=== PATIENT | male | born 1940 | race Hispanic/Latino ===

== ENCOUNTER 2017-07-01 11:50 | Inpatient (IN) | payer MEDICARE ==
[2017-07-01] VITALS (17 sets, daily range): BP systolic 95–131; BP diastolic 50–85
[~2017-07-01] VITALS: Ht 160 cm; Wt 76.2 kg
[2017-07-01] MEDS ORDERED: HEPARIN SOD (PORCINE) 5,000 UNIT/ML VIAL ONE (12:41)
[2017-07-01] MEDS ORDERED: ASPIRIN 81 MG CHEW TAB ONE (12:41)
[2017-07-01] MEDS ORDERED: HEPARIN SOD (PORCINE) 1000 UNIT/ML SDV IV ONE (12:45)
[2017-07-01] MEDS ORDERED: SODIUM CHLORIDE FLUSH 10 ML SYR INJ PRN (12:45)
[2017-07-01] MEDS ORDERED: ASPIRIN 325 MG TAB PO ONE (12:45)
[2017-07-01 12:48] LABS: BASOPHILS # (AUTO) 0.1 (0.0-0.1); BASOPHILS % 0.4 % (0.0-1.0); EOSINOPHILS % 0.2 % (0.0-6.0); HEMATOCRIT 45.9 % (38.2-49.6); HEMOGLOBIN 15.3 g/dL (14.0-18.0); LYMPHOCYTES # (AUTO) 1.8 (1.0-3.2); LYMPHOCYTES % 14.7 % (18.0-39.1); MEAN CORPUSCULAR HEMOGLOBIN 30.8 pg (28-32); MEAN CORPUSCULAR HGB CONC 33.3 g/dL (31-35); MEAN CORPUSCULAR VOLUME 92.4 fL (81-99); MONOCYTES # (AUTO) 0.9 (0.2-0.8); MONOCYTES % 6.9 % (4.4-11.3); NEUTROPHILS # (AUTO) 9.7 (2.1-6.9); NEUTROPHILS % 77.3 % (38.7-80.0); PLATELET COUNT 221 x10e3/uL (140-360); RED BLOOD COUNT 4.97 x10e6/uL (4.3-5.7); RED CELL DISTRIBUTION WIDTH 14.6 % (11.7-14.4)
[2017-07-01 12:56] LABS: INR 0.99; PROTHROMBIN TIME 13.6 seconds (11.9-14.5)
[2017-07-01 12:57] LABS: PARTIAL THROMBOPLASTIN TIME 34.4 seconds (23.8-35.5)
--- NOTE | 2017-07-01 13:00 | Diagnostic Imaging Report ---
Portable chest x-ray CPT code 47827 INDICATION: Pain COMPARISON: None FINDINGS: Frontal view of the chest obtained at 1030 hours. The cardiac silhouette is enlarged. Median sternotomy wires are intact. The pulmonary vasculature is prominent centrally. The lungs demonstrate diffuse hyperinflation. There is haziness in the right lung base suggestive of atelectasis or infiltrate. The pulmonary interstitium is mildly prominent. No large effusions. There is no pneumothorax. The osseous structures are intact and normal in morphology. IMPRESSION: 1. Cardiomegaly. Prominence of the central pulmonary vasculature could be the result of pulmonary venous hypertension. 2. Mild prominence of the pulmonary interstitium suggestive of edema. 3. Right basilar airspace opacity is suggestive of atelectasis or infiltrate. Consider PA and lateral chest x-ray for further characterization when clinically feasible. Signed by: Dr. Mei Reyes MD on 07/01/2017 12:56 PM
[2017-07-01 13:03] LABS: ALANINE AMINOTRANSFERASE 18 IU/L (0-55); ALBUMIN/GLOBULIN RATIO 0.7 (0.8-2.0); ALKALINE PHOSPHATASE 51 IU/L (40-150); ANION GAP 15.9 mmol/L (8-16); BLOOD UREA NITROGEN 15 mg/dL (7-26); BUN/CREATININE RATIO 15 (6-25); CALCIUM 8.7 mg/dL (8.4-10.2); CARBON DIOXIDE 24 mmol/L (22-29); CHLORIDE 103 mmol/L (98-107); CREATININE, SERUM 1.03 mg/dL (0.72-1.25); EST GLOMERULAR FILTRATION RATE > 60 ML/MIN (60-); GLUCOSE 118 mg/dL (74-118); POTASSIUM 3.9 mmol/L (3.5-5.1); SODIUM 139 mmol/L (136-145)
[2017-07-01 13:08] LABS: TROPONIN I 5.48 ng/mL (0.0-0.40)
[2017-07-01] MEDS ORDERED: HEPARIN SOD (PORCINE) 1000 UNIT/ML 30ML ONE (13:09)
[2017-07-01] MEDS ORDERED: MIDAZOLAM HCL 2 MG/2 ML VIAL ONE (13:10)
[2017-07-01] MEDS ORDERED: FENTANYL CITRATE/PF 100MCG/2 ML INJ ONE (13:10)
[2017-07-01] MEDS ORDERED: HEPARIN SOD/SOD CHLORIDE 0 ML ONE (13:10)
[2017-07-01] MEDS ORDERED: IOPAMIDOL 370 MG/ML 200 ML INFUS..BTL INJ ONE (13:10)
[2017-07-01 13:16] LABS: CREATINE KINASE 280 IU/L (30-200)
[2017-07-01] MEDS ORDERED: LISINOPRIL2.5 MG PO (15:28)
[2017-07-01] MEDS ORDERED: NITROGLYCERIN0.4 MG SL (15:28)
[2017-07-01] MEDS ORDERED: METOPROLOL TART25 MG PO (15:28)
[2017-07-01] MEDS ORDERED: FLOMAX0.4 MG PO (15:28)
[2017-07-01] MEDS ORDERED: HYDROCODONE/APAP 5MG-325MG TAB PO PRN (19:00)
[2017-07-01] MEDS ORDERED: NITROGLYCERIN 0.4 MG SUBL SL PRN (19:00)
[2017-07-01] MEDS ORDERED: ONDANSETRON HCL INJ 2 MG/ML VIAL IV PRN (19:00)
[2017-07-01] MEDS ORDERED: MORPHINE SULFATE 2 MG/ML SYR IV PRN (19:00)
[2017-07-01] MEDS: HEPARIN 25,000 UNIT/D5W 250ML 250 ML IV SCH (19:14)
[2017-07-01] MEDS ORDERED: HEPARIN SOD (PORCINE) 5,000 UNIT/ML VIAL IV ONE (19:15)
[2017-07-01] MEDS ORDERED: FUROSEMIDE 40 MG TAB PO ONE (19:30)
[2017-07-01] MEDS: TAMSULOSIN HCL 0.4 MG CAP PO SCH (21:26)
[2017-07-01] MEDS: CLOPIDOGREL BISULFATE 75 MG TAB PO SCH (21:26)
[2017-07-01] MEDS: ATORVASTATIN 20 MG TAB PO SCH (21:26)
[2017-07-01 21:41] LABS: CREATINE KINASE MB 46.3 ng/mL (0.00-5.00)
[2017-07-01 21:51] LABS: TROPONIN I 17.268 ng/mL (0-0.300)
[2017-07-02] VITALS (39 sets, daily range): BP systolic 78–116; BP diastolic 40–76
--- NOTE | 2017-07-02 03:38 | History and Physical ---
CHIEF COMPLAINT: Chest pain. HPI: This is a 76-year-old male with a history of CABG back in 2000 and stent placements back in 1997. Has underlying coronary artery disease, former smoker, hyperlipidemia, and hypertension. Denies any diabetes. Reports to the ED with complaints of chest pain on and off for the last 2 months. Patient reports that his chest pain progressively got worse about 2 weeks ago. Described more substernal in nature with radiation to the left shoulder and arm with associated nausea. He reports having chest pain on exertion. He denies any palpitations, abdominal pain or any other complaints at this time. Patient reported to the ED and found to have a troponin greater than 5, and was initially was called as a STEMI. After review with the EKG by the narcotics investigator, at this time he did not feel like there was need for any left heart cath immediately. Patient was started on heparin drip, Plavix and aspirin, and medical management at this time. REVIEW OF SYSTEMS: Pertinent positives are substernal chest pain, chest pain on exertion. Pertinent negatives: Denies any palpitations, nausea, dysuria, hematuria, frequency, urgency, lightheadedness, dizziness, abdominal pain, headache, shortness of breath, or any other complaints. The rest of the 14-point review of systems have been reviewed with the patient and are negative. ALLERGIES: NO KNOWN DRUG ALLERGIES. HOME MEDICATIONS 1. Lisinopril 5 mg daily. 2. Metoprolol 12.5 mg daily. 3. Nitroglycerin 0.4 mg sublingual as needed for chest pain. 4. He also has tamsulosin 0.4 mg daily. PAST MEDICAL HISTORY: Hypertension, BPH, coronary artery disease, status post CABG back in 2000, 4-vessel disease, and also cardiac stents placed back in 1997. SURGICAL HISTORY: He had a 4-vessel CABG back in 2000. Also, cardiac stents back in 1997. No other surgeries. FAMILY HISTORY: Hypertension and diabetes. SOCIAL HISTORY: Was a former smoker many years ago. No drugs. No alcohol. Does not work. He is retired. PHYSICAL EXAMINATION VITAL SIGNS: Temperature is 98.5, pulse 62, respiratory rate 18, blood pressure 115/71, and pulse ox 99% on room air. GENERAL: Not in acute distress. Alert and oriented times 3. Cooperative on exam. HEENT: Head is normocephalic and atraumatic. Eyes: Pupils equal, round and reactive to light bilaterally. Extraocular movements intact bilaterally. NECK: Supple. Good range of motion. Throat with no evidence of any erythema in the posterior pharynx. Has poor dentition. PULMONARY: Clear to auscultation bilaterally. No wheezing. No rales. No rhonchi. No crackles appreciated. CARDIOVASCULAR: Positive S1 and S2. No murmurs, rubs or gallops appreciated. ABDOMEN: Soft, nondistended and nontender to palpation. Bowel sounds present. MUSCULOSKELETAL: Strength is 5/5 throughout. No evidence of any musculoskeletal deficits on examination. No weakness appreciated. NEUROLOGICAL: Cranial nerves II-XII are grossly intact. No evidence of any neurologic deficits on exam. SKIN: Intact. Warm to touch. Good cap refill. PSYCHIATRIC: Normal affect and mood. EXTREMITIES: No edema. Good range of motion throughout. LAB FINDINGS: Show a white count of 12.4, hemoglobin 15.3, hematocrit 46, and platelets of 221,000. Coagulations are all normal. Chemistry: Sodium 139, potassium 3.9, chloride 103, bicarb 24, anion gap of 15, BUN 15, creatinine 1, glucose 118. Calcium 8.7. Total bilirubin is 1.5, AST 48, ALT 18, alk phos 51. CK is 280, CK-MB 29 and troponin 5.5. Total protein is 7.3, albumin is 3. IMAGING STUDIES: Chest x-ray showed some prominence of some pulmonary interstitial edema. ASSESSMENT AND PLAN 1. Kkg-NN-gvhmqzn elevation myocardial infarction with elevated troponin: Troponin was greater than 5. Elevated CK-MB. Electrocardiogram shows likely inferior wall myocardial infarction. Cardiology was consulted. Recommended heparin drip, Plavix, aspirin, statin. Trend troponins. RAFA inhibitor and beta blockade, which were all started. Will follow cardiology recommendations. Keep in the intensive care unit for close monitoring and evaluation. 2. Hypertension: Currently, blood pressure is stable. Continue with metoprolol and RAFA inhibitor. 3. Hyperlipidemia: Get lipid panel, A1c, TSH, and start on Lipitor. 4. Chronic smoker: Patient had a former history of smoking. Currently, not smoking. 5. Prophylaxis: Heparin drip. 6. Fluid, electrolytes and nutrients: No intravenous fluids. N.p.o. after midnight. Heart-healthy diet. 7. Disposition: Intensive care unit. Cardiology consulted. I spent more than 40 minutes of critical care time on this case reviewing the chart, discussing overall plan of care with the family. Patient is currently in the ICU. Discussed overall plan of care with nursing staff as well. Job#: [id number] HOSEA
--- NOTE | 2017-07-02 03:55 | History and Physical ---
No Dictation 00:07 seconds. Job#: [id number]
--- NOTE | 2017-07-02 04:32 | Consultation ---
DATE OF CONSULTATION: CARDIOLOGY CONSULTATION I am senior safety management consultant for interventional cardiology at [facility]. I was asked to evaluate this patient. The patient was seen, EKG evaluated. Patient came here with chest pain on and off for 1 to 2 weeks and patient did not have a chest pain except he had a mild chest pain this morning, but remote pains for last 1 to 2 weeks. At this time of my examination, patient does not complain of any chest pain, blood pressure about 130/80, and no evidence of congestive heart failure. Patient's EKG shows sinus rhythm, possible old anterior wall WI, resolving ST elevation that is seen only in L3 but not in any other leads. ST elevation also secondary, it is more or less becoming ST-T changes. So, it is not an ST-elevation WI, resolving non-Q wave myocardial infarction, probably happened within last 24 hours. His enzymes are also 5.2 at this time. As the patient has no chest pain and patient does not show any acute ST-elevation WI, at this time, there is no need to do emergency heart catheterization. At this time, we will keep him in the ICU, put him on anticoagulant heparin, Plavix, aspirin, beta anish and observe him. Patient probably had an WI maybe within last 12 to 24 hours and it is resolving non-Q myocardial infarction. Also, patient will be followed by his cardiology group, Dr. Delgado and associates. I believe he follows them very closely and he also belongs to [employer] insurance, but I saw this patient because I was senior safety management consultant to evaluate the possible ST-elevation WI and take him to the cardiac worm farm laborer. As the patient is stable, no chest pain, hemodynamically normal, at this time patient is kept in ICU and observed and treated appropriately. IMPRESSIONS 1. Non-Q wave myocardial infarction. 2. History of hypertension. 3. History of aortocoronary bypass surgery x4 in 2001. In 1989, he had a coronary stent placement, but the patient has been evaluated by cardiology group, Dr. Delgado and associates. Anyhow, I will follow this patient until they take over this patient. This is emergency consultation, patient seen in the emergency room. Job#: [id number] [facility] INSTITUTEChandu
[2017-07-02] MEDS ORDERED: ASPIRIN325 MG PO (07:01)
[2017-07-02] MEDS ORDERED: DIPHENHYDRAMINE25 MG PO (07:03)
[2017-07-02 07:09] LABS: CHOL/HDL RATIO 4.4 (3.9-4.7)
[2017-07-02 07:12] LABS: ALANINE AMINOTRANSFERASE 21 IU/L (0-55); ALBUMIN 2.6 g/dL (3.5-5.0); ALBUMIN/GLOBULIN RATIO 0.7 (0.8-2.0); ALKALINE PHOSPHATASE 45 IU/L (40-150); ANION GAP 11.6 mmol/L (8-16); BLOOD UREA NITROGEN 16 mg/dL (7-26); BUN/CREATININE RATIO 16 (6-25); CALCIUM 8.3 mg/dL (8.4-10.2); CARBON DIOXIDE 27 mmol/L (22-29); CHLORIDE 102 mmol/L (98-107); CREATININE, SERUM 0.97 mg/dL (0.72-1.25); EST GLOMERULAR FILTRATION RATE > 60 ML/MIN (60-); GLUCOSE 120 mg/dL (74-118); POTASSIUM 3.6 mmol/L (3.5-5.1); SODIUM 137 mmol/L (136-145)
[2017-07-02 07:26] LABS: INR 1.06; PROTHROMBIN TIME 14.3 seconds (11.9-14.5)
[2017-07-02 07:34] LABS: CREATINE KINASE MB 32.6 ng/mL (0.00-5.00)
[2017-07-02] MEDS: LISINOPRIL 2.5 MG TAB PO SCH (09:00)
[2017-07-02] MEDS: CLOPIDOGREL BISULFATE 75 MG TAB PO SCH (09:00)
[2017-07-02] MEDS ORDERED: NITROGLYCERIN 0.4 MG SUBL SL PRN (09:00)
[2017-07-02] MEDS: ASPIRIN 81 MG CHEW TAB PO SCH (09:00)
[2017-07-02] MEDS: METOPROLOL TARTRATE 25 MG TAB PO SCH (09:00)
[2017-07-02 09:48] LABS: TROPONIN I 35.944 ng/mL (0-0.300)
[2017-07-02] MEDS: TAMSULOSIN HCL 0.4 MG CAP PO SCH (20:48)
[2017-07-02] MEDS: ATORVASTATIN 20 MG TAB PO SCH (20:48)
[2017-07-02] MEDS: ZOLPIDEM TARTRATE 5 MG TAB PO PRN (20:49)
[2017-07-02] MEDS: HEPARIN 25,000 UNIT/D5W 250ML 250 ML IV SCH (21:18)
[2017-07-03] VITALS (49 sets, daily range): BP systolic 71–130; BP diastolic 28–81
[2017-07-03 06:29] LABS: BASOPHILS % 0.4 % (0.0-1.0); EOSINOPHILS # (AUTO) 0.2 (0.0-0.4); EOSINOPHILS % 1.5 % (0.0-6.0); HEMATOCRIT 37.2 % (38.2-49.6); HEMOGLOBIN 12.6 g/dL (14.0-18.0); LYMPHOCYTES # (AUTO) 1.9 (1.0-3.2); LYMPHOCYTES % 17.6 % (18.0-39.1); MEAN CORPUSCULAR HEMOGLOBIN 31.3 pg (28-32); MEAN CORPUSCULAR HGB CONC 33.9 g/dL (31-35); MEAN CORPUSCULAR VOLUME 92.5 fL (81-99); MONOCYTES % 9.3 % (4.4-11.3); NEUTROPHILS # (AUTO) 7.4 (2.1-6.9); NEUTROPHILS % 70.1 % (38.7-80.0); PLATELET COUNT 187 x10e3/uL (140-360); RED BLOOD COUNT 4.02 x10e6/uL (4.3-5.7)
[2017-07-03 07:15] LABS: ANION GAP 9.5 mmol/L (8-16); BLOOD UREA NITROGEN 17 mg/dL (7-26); BUN/CREATININE RATIO 19 (6-25); CALCIUM 8.2 mg/dL (8.4-10.2); CARBON DIOXIDE 28 mmol/L (22-29); CHLORIDE 100 mmol/L (98-107); CREATININE, SERUM 0.88 mg/dL (0.72-1.25); EST GLOMERULAR FILTRATION RATE > 60 ML/MIN (60-); GLUCOSE 103 mg/dL (74-118); MAGNESIUM 1.9 MG/DL (1.3-2.1); POTASSIUM 3.5 mmol/L (3.5-5.1); SODIUM 134 mmol/L (136-145)
[2017-07-03 07:21] LABS: INR 1.04; PROTHROMBIN TIME 14.1 seconds (11.9-14.5)
[2017-07-03] MEDS: CLOPIDOGREL BISULFATE 75 MG TAB PO SCH (08:21)
[2017-07-03] MEDS: LISINOPRIL 2.5 MG TAB PO SCH (08:21)
[2017-07-03] MEDS: ASPIRIN 81 MG CHEW TAB PO SCH (08:21)
[2017-07-03] MEDS: METOPROLOL TARTRATE 25 MG TAB PO SCH (08:21)
[2017-07-03] MEDS: TAMSULOSIN HCL 0.4 MG CAP PO SCH (22:03)
[2017-07-03] MEDS: ATORVASTATIN 20 MG TAB PO SCH (22:03)
[2017-07-04] VITALS (47 sets, daily range): BP systolic 80–129; BP diastolic 41–85
[2017-07-04] MEDS: HEPARIN 25,000 UNIT/D5W 250ML 250 ML IV SCH ×2 (02:59→18:45)
[2017-07-04 06:12] LABS: BASOPHILS # (AUTO) 0.1 (0.0-0.1); BASOPHILS % 0.5 % (0.0-1.0); EOSINOPHILS # (AUTO) 0.3 (0.0-0.4); HEMATOCRIT 39.3 % (38.2-49.6); HEMOGLOBIN 13.3 g/dL (14.0-18.0); LYMPHOCYTES # (AUTO) 2.4 (1.0-3.2); LYMPHOCYTES % 23.5 % (18.0-39.1); MEAN CORPUSCULAR HEMOGLOBIN 31.4 pg (28-32); MEAN CORPUSCULAR HGB CONC 33.8 g/dL (31-35); MEAN CORPUSCULAR VOLUME 92.9 fL (81-99); MONOCYTES % 9.5 % (4.4-11.3); NEUTROPHILS # (AUTO) 6.3 (2.1-6.9); PLATELET COUNT 198 x10e3/uL (140-360); RED BLOOD COUNT 4.23 x10e6/uL (4.3-5.7); RED CELL DISTRIBUTION WIDTH 13.8 % (11.7-14.4)
[2017-07-04 07:12] LABS: ANION GAP 14.4 mmol/L (8-16); BLOOD UREA NITROGEN 16 mg/dL (7-26); BUN/CREATININE RATIO 16 (6-25); CALCIUM 8.5 mg/dL (8.4-10.2); CARBON DIOXIDE 26 mmol/L (22-29); CHLORIDE 99 mmol/L (98-107); CREATININE, SERUM 1.03 mg/dL (0.72-1.25); EST GLOMERULAR FILTRATION RATE > 60 ML/MIN (60-); GLUCOSE 106 mg/dL (74-118); POTASSIUM 3.4 mmol/L (3.5-5.1); SODIUM 136 mmol/L (136-145)
[2017-07-04] MEDS: ASPIRIN 81 MG CHEW TAB PO SCH (08:12)
[2017-07-04] MEDS: LISINOPRIL 2.5 MG TAB PO SCH (08:13)
[2017-07-04] MEDS: PANTOPRAZOLE SOD 40 MG TABEC PO SCH (08:13)
[2017-07-04] MEDS: METOPROLOL TARTRATE 25 MG TAB PO SCH (08:13)
[2017-07-04] MEDS: CLOPIDOGREL BISULFATE 75 MG TAB PO SCH (08:13)
[2017-07-04] MEDS ORDERED: POTASSIUM CHLORIDE 20 MEQ TAB CR PO ONE (08:55)
--- NOTE | 2017-07-04 11:13 | Progress Note ---
DATE: July 04, 2017 TIME: 6:48 a.m. OVERNIGHT: No events. He remains on heparin drip. REVIEW OF SYSTEMS: Denies any chest pain. PHYSICAL EXAMINATION VITAL SIGNS: Reviewed. Blood pressure as low as 82/42 overnight. GENERAL: A tired-appearing man resting in bed. HEENT: Anicteric. CARDIOVASCULAR: Normal S1 and S2. LUNGS: Moderate breath sounds. ABDOMEN: Soft, nontender and nondistended. EXTREMITIES: No edema. SKIN: Dry. PSYCHIATRIC: Normal affect. LABS: Reviewed. MEDICATIONS: Reviewed. ASSESSMENT: This is a 76-year-old man with: 1. Iwv-GG-nkeyqkx elevation myocardial infarction: Plan for heart catheterization. Continue heparin drip and other medication regimen. 2. Cardiogenic shock. 3. Hyperlipidemia. 4. History of cigarette abuse. 5. Normocytic anemia. 6. BPH. 7. Severe systolic congestive heart failure: Left ventricular ejection fraction less than 20%. PLAN 1. Continue heparin drip as well as statin, aspirin, Plavix, beta anish. 2. Continue statin medications. 3. Monitor blood pressure while on low-dose beta anish in the setting of low blood pressure. 4. Automatic implanted cardioverter defibrillator versus Life Vest. 5. Add Protonix for DVT prophylaxis. 6. Critical care time more than 35 minutes. Job#: [id number] HOSEA
[2017-07-04] MEDS: TAMSULOSIN HCL 0.4 MG CAP PO SCH (21:35)
[2017-07-04] MEDS: ATORVASTATIN 20 MG TAB PO SCH (21:35)
[2017-07-04] MEDS: ZOLPIDEM TARTRATE 5 MG TAB PO PRN (21:36)
[2017-07-05] VITALS (42 sets, daily range): BP systolic 91–138; BP diastolic 52–76
[2017-07-05] MEDS ORDERED: ACETAMINOPHEN 1000 MG/100 ML IV PRN (06:00)
[2017-07-05 06:01] LABS: BASOPHILS % 0.4 % (0.0-1.0); EOSINOPHILS # (AUTO) 0.3 (0.0-0.4); EOSINOPHILS % 3.3 % (0.0-6.0); HEMATOCRIT 40.9 % (38.2-49.6); HEMOGLOBIN 13.9 g/dL (14.0-18.0); LYMPHOCYTES # (AUTO) 1.2 (1.0-3.2); LYMPHOCYTES % 12.9 % (18.0-39.1); MEAN CORPUSCULAR HEMOGLOBIN 31.1 pg (28-32); MEAN CORPUSCULAR VOLUME 91.5 fL (81-99); MONOCYTES # (AUTO) 0.8 (0.2-0.8); MONOCYTES % 8.7 % (4.4-11.3); NEUTROPHILS # (AUTO) 6.8 (2.1-6.9); NEUTROPHILS % 74.4 % (38.7-80.0); PLATELET COUNT 207 x10e3/uL (140-360); RED BLOOD COUNT 4.47 x10e6/uL (4.3-5.7); RED CELL DISTRIBUTION WIDTH 13.6 % (11.7-14.4)
[2017-07-05 06:12] LABS: INR 0.99; PROTHROMBIN TIME 13.6 seconds (11.9-14.5)
[2017-07-05 06:13] LABS: PARTIAL THROMBOPLASTIN TIME 35.7 seconds (23.8-35.5)
[2017-07-05 06:27] LABS: ALANINE AMINOTRANSFERASE 17 IU/L (0-55); ALBUMIN 2.7 g/dL (3.5-5.0); ALBUMIN/GLOBULIN RATIO 0.6 (0.8-2.0); ALKALINE PHOSPHATASE 47 IU/L (40-150); ANION GAP 13.9 mmol/L (8-16); BLOOD UREA NITROGEN 15 mg/dL (7-26); BUN/CREATININE RATIO 16 (6-25); CALCIUM 8.6 mg/dL (8.4-10.2); CARBON DIOXIDE 24 mmol/L (22-29); CHLORIDE 102 mmol/L (98-107); CREATININE, SERUM 0.91 mg/dL (0.72-1.25); EST GLOMERULAR FILTRATION RATE > 60 ML/MIN (60-); GLUCOSE 104 mg/dL (74-118); MAGNESIUM 1.9 MG/DL (1.3-2.1); POTASSIUM 3.9 mmol/L (3.5-5.1); SODIUM 136 mmol/L (136-145)
[2017-07-05] MEDS ORDERED: LIDOCAINE HCL 2% LOCAL 20 ML VIAL ONE (06:30)
[2017-07-05] MEDS ORDERED: HEPARIN SOD (PORCINE) 1000 UNIT/ML 30ML ONE (06:30)
[2017-07-05] MEDS ORDERED: IOPAMIDOL 300MG/ML 50ML INFUS..BTL IV ONE (06:31)
[2017-07-05] MEDS ORDERED: IOPAMIDOL 370 MG/ML 200 ML INFUS..BTL INJ ONE (06:31)
[2017-07-05] MEDS ORDERED: HEPARIN SOD/SOD CHLORIDE 2,000 ML ONE (06:31)
[2017-07-05] MEDS ORDERED: SODIUM CHLORIDE 0.9% 1000ML 1,000 ML ONE (06:31)
--- NOTE | 2017-07-05 06:58 | Diagnostic Imaging Report ---
EXAMINATION: CHEST SINGLE (PORTABLE) INDICATION: Cough, fever COMPARISON: 07/01/2017 FINDINGS: TUBES and LINES: None. LUNGS: Lungs are not well inflated. Confluent right lower lobe and right mid lung opacities compatible with developing infection PLEURA: No pleural effusion or pneumothorax. HEART AND MEDIASTINUM: Cardiac size is mildly enlarged. Midline sternotomy wires are intact. BONES AND SOFT TISSUES: No acute osseous lesion. Soft tissues are unremarkable. UPPER ABDOMEN: No free air under the diaphragm. IMPRESSION: Right lung airspace disease with air bronchograms suspicious for pneumonia. Follow-up until resolution. Signed by: Dr. Abhishek Newton M.D. on 07/05/2017 6:55 AM
[2017-07-05] MEDS ORDERED: NITROGLYCERIN/D5W 200 MCG/ML 250 ML ONE (07:06)
[2017-07-05] MEDS ORDERED: FENTANYL CITRATE/PF 100MCG/2 ML INJ ONE (07:11)
[2017-07-05] MEDS ORDERED: MIDAZOLAM HCL 2 MG/2 ML VIAL ONE (07:12)
--- NOTE | 2017-07-05 08:37 | Operative Report ---
DATE OF PROCEDURE: July 05, 2017 PROCEDURES 1. Left heart catheterization. 2. Selective coronary angiogram. 3. Left ventriculogram. 4. Aortogram. 5. Graft injection. INDICATIONS: Myocardial infarction. DESCRIPTION OF PROCEDURE: After informed consent, the patient was brought to the cardiac catheterization laboratory and placed on the table. Both groins were painted and draped in a sterile fashion. Lidocaine injected in the right groin for local anesthesia. Right femoral artery was accessed by Seldinger technique, and a 5-St Lucian sheath was placed in the right femoral artery. Left main artery was cannulated using a JL4 5-St Lucian catheter. Coronary angiogram was performed and images obtained in multiple views. Right coronary artery was cannulated using a 3DRC 5-St Lucian catheter. Coronary angiogram was performed and images obtained multiple views. The saphenous vein graft to the left circumflex was cannulated using a 3DRC catheter. Coronary angiogram was performed and images obtained multiple views. The BRAY to the LAD was cannulated using a BRAY catheter. Coronary angiogram was performed and imagines obtained in multiple views. LV-gram was performed using a pigtail catheter. The pigtail catheter was pulled back into the aorta, and aortogram was performed to look for additional grafts. Patient tolerated the procedure without any complications. REPORT LEFT MAIN: Narrow caliber and diffusely diseased. LEFT ANTERIOR DESCENDING: Totally occluded in its proximal portion proximal to the previously placed stent. LEFT CIRCUMFLEX: Totally occluded in its proximal portion. RIGHT CORONARY ARTERY: Diffusely diseased throughout its course with a 30% mid-lesion followed by a 99% mid-lesion and a 60% to 70% mid-lesion. The saphenous vein graft to the left circumflex is patent with about 30% mid-lesion. The BRAY to the LAD was patent. It was tortuous. LV-GRAM: Shows severe hypokinesis of the inferior basal wall and hypokinesis of the other gunter. Overall, EF is about 15% to 20%. Aortogram shows no significant aortic insufficiency. No additional grafts were identified. HEMODYNAMICS: Aortic pressure is 106/60. LV pressure 119/11. LVEDP is 25. No intervention of the right coronary artery was done due with the diffuse nature of the disease, low EF and high risk PCI. PLAN: Life Vest and possible ICD down the road if the patient agrees. Job#: [id number] RI
[2017-07-05] MEDS: CLOPIDOGREL BISULFATE 75 MG TAB PO SCH ×2 (09:00→10:46)
[2017-07-05] MEDS: ASPIRIN 81 MG CHEW TAB PO SCH ×2 (09:00→10:46)
[2017-07-05] MEDS: PANTOPRAZOLE SOD 40 MG TABEC PO SCH (09:00)
[2017-07-05] MEDS: LISINOPRIL 2.5 MG TAB PO SCH (09:00)
[2017-07-05] MEDS: METOPROLOL TARTRATE 25 MG TAB PO SCH ×2 (10:29→17:00)
[2017-07-05] MEDS: LEVOFLOXACIN 500MG/D5W 100ML 100 ML IV SCH (15:00)
[2017-07-05] MEDS ORDERED: SODIUM CHLORIDE 0.9% 250ML 250 ML ONE (16:42)
[2017-07-05] MEDS ORDERED: METOPROLOL TARTRATE 25 MG TAB PO SCH (17:00)
[2017-07-05] MEDS ORDERED: METOPROLOL SUCCINATE 25 MG TAB XL PO SCH (17:00)
[2017-07-05] MEDS: HEPARIN 25,000 UNIT/D5W 250ML 250 ML IV SCH (18:33)
[2017-07-05] MEDS: ACETAMINOPHEN 325 MG TAB PO PRN (19:12)
[2017-07-05] MEDS: ATORVASTATIN 20 MG TAB PO SCH (21:20)
[2017-07-05] MEDS: TAMSULOSIN HCL 0.4 MG CAP PO SCH (21:20)
[2017-07-06] VITALS (21 sets, daily range): BP systolic 102–133; BP diastolic 56–82
--- NOTE | 2017-07-06 07:13 | Progress Note ---
DATE: July 06, 2017 TIME: 6:20 a.m. OVERNIGHT: The patient had left heart catheterization. REVIEW OF SYSTEMS: Denies any chest pain. PHYSICAL EXAMINATION VITAL SIGNS: Reviewed. GENERAL: A tired-appearing man resting in bed. HEENT: Anicteric. CARDIOVASCULAR: Normal S1 and S2. LUNGS: Moderate breath sounds. ABDOMEN: Soft, nontender and nondistended. : He has a right groin dressing in place. Soft site. No tenderness. EXTREMITIES: No edema. SKIN: Dry. PSYCHIATRIC: Normal affect. LABS: Reviewed. MEDICATIONS: Reviewed. ASSESSMENT: A 76-year-old man with: 1. Gbu-XC-rsdujma elevation myocardial infarction. 2. Cardiogenic shock. 3. Severe systolic congestive heart failure: Ejection fraction less than 20%. 4. Hyperlipidemia. 5. Cigarette abuse. 6. Normocytic anemia. 7. BPH. PLAN 1. Life Vest explained to him. 2. Heart catheterization revealed left main diffusely diseased. Left anterior descending artery totally occluded in the proximal region. Left circumflex totally occluded in the proximal region. The right coronary artery has significant disease and 99% mid-lesion. No intervention was performed due to low ejection fraction in a high risk patient. Will follow up with cardiology recommendations. 3. Continue Lipitor, Plavix, aspirin, RAFA inhibitor, beta anish. 4. Continue Protonix and GI prophylaxis. 5. Critical care time more than 35 minutes. Job#: [id number] [place]
--- NOTE | 2017-07-06 07:17 | Progress Note ---
DATE: July 05, 2017 TIME: 6:30 a.m. OVERNIGHT: No events. REVIEW OF SYSTEMS: Denies any chest pain. PHYSICAL EXAMINATION VITAL SIGNS: Reviewed. GENERAL: A tired-appearing man resting in bed. HEENT: Anicteric. CARDIOVASCULAR: Normal S1/S2. No murmurs. ABDOMEN: Soft, nontender. EXTREMITIES: No edema. SKIN: Dry. PSYCHIATRIC: Normal affect. LABS: Reviewed. MEDICATIONS: Reviewed. ASSESSMENT: A 76-year-old man with 1. Non-ST elevation myocardial infarction. 2. Cardiogenic shock. 3. Hyperlipidemia. 4. Cigarette abuse. 5. Normocytic anemia. 6. BPH. 7. Severe systolic congestive heart failure: Ejection fraction less than 20%. PLAN 1. Follow up left heart catheterization. 2. Continue medication regimen and medical management. 3. Continue GI prophylaxis . Job#: [id number] CQ
[2017-07-06] MEDS ORDERED: BENZONATATE 100 MG CAP PO PRN (09:00)
[2017-07-06] MEDS: ASPIRIN 81 MG CHEW TAB PO SCH (10:04)
[2017-07-06] MEDS: METOPROLOL TARTRATE 25 MG TAB PO SCH ×2 (10:06→17:00)
[2017-07-06] MEDS: PANTOPRAZOLE SOD 40 MG TABEC PO SCH (10:06)
[2017-07-06] MEDS: LISINOPRIL 2.5 MG TAB PO SCH (10:06)
[2017-07-06] MEDS: CLOPIDOGREL BISULFATE 75 MG TAB PO SCH (10:06)
[2017-07-06] MEDS: LEVOFLOXACIN 500MG/D5W 100ML 100 ML IV SCH (15:00)
[2017-07-06] MEDS: HEPARIN 25,000 UNIT/D5W 250ML 250 ML IV SCH (18:45)
[2017-07-06] MEDS: ACETAMINOPHEN 325 MG TAB PO PRN (20:51)
[2017-07-06] MEDS: ATORVASTATIN 20 MG TAB PO SCH (20:51)
[2017-07-06] MEDS: TAMSULOSIN HCL 0.4 MG CAP PO SCH (20:51)
[2017-07-07] VITALS (7 sets, daily range): BP systolic 99–118; BP diastolic 52–64
--- NOTE | 2017-07-07 07:21 | Progress Note ---
DATE: July 07, 2017 TIME: 6:30 a.m. OVERNIGHT: No chest pain. Some coughing. REVIEW OF SYSTEMS: Denies any dizziness. PHYSICAL EXAMINATION VITAL SIGNS: Reviewed. GENERAL: A tired-appearing man resting in bed. HEENT: Anicteric. CARDIOVASCULAR: Normal S1 and S2. LUNGS: He has mildly coarse breath sounds. ABDOMEN: Soft, nontender and nondistended. EXTREMITIES: No edema or calf tenderness. NEUROLOGICAL: Alert and appropriate. Moving all extremities. SKIN: Dry. PSYCHIATRIC: Flat affect. LABS: Reviewed. MEDICATIONS: Reviewed. ASSESSMENT: A 76-year-old man with: 1. Lrq-OX-uviypdf elevation myocardial infarction. 2. Cardiogenic shock. 3. Severe systolic congestive heart failure with ejection fraction of less than 20%. 4. Hyperlipidemia. 5. Cigarette abuse. 6. Normocytic anemia. 7. BPH. 8. Multivessel coronary artery disease without any intervention and left heart catheterization. PLAN 1. Continue medical management. 2. Lipase pending. 3. Continue Lipitor, Plavix, aspirin, RAFA inhibitor, and beta anish. 4. On antitussive medications, Tessalon, guaifenesin DM. 5. Awaiting discharge once lipase is obtained. Patient can be discharged home. He will probably benefit from cardiac rehab. Consult case management for cardiac rehab upon discharge. He needs close followup with cardiology outpatient. Job#: [id number] HOSEA
[2017-07-07] MEDS ORDERED: BENZONATATE 100 MG CAP PO PRN (09:00)
[2017-07-07] MEDS: ASPIRIN 81 MG CHEW TAB PO SCH (09:05)
[2017-07-07] MEDS: CLOPIDOGREL BISULFATE 75 MG TAB PO SCH (09:05)
[2017-07-07] MEDS: LISINOPRIL 2.5 MG TAB PO SCH (09:05)
[2017-07-07] MEDS: PANTOPRAZOLE SOD 40 MG TABEC PO SCH (09:05)
[2017-07-07] MEDS: METOPROLOL TARTRATE 25 MG TAB PO SCH ×2 (09:05→16:34)
[2017-07-07] MEDS: BENZONATATE 100 MG CAP PO SCH ×3 (09:07→21:00)
[2017-07-07] MEDS: GUAIFENESIN 600MG/DEXTROMETHORPHAN 30MG TABSR PO SCH ×2 (16:00→21:00)
[2017-07-07] MEDS: LEVOFLOXACIN 500MG/D5W 100ML 100 ML IV SCH (16:34)
[2017-07-07] MEDS: TAMSULOSIN HCL 0.4 MG CAP PO SCH (21:00)
[2017-07-07] MEDS: ATORVASTATIN 20 MG TAB PO SCH (21:00)
[2017-07-08] VITALS: BP 104/59
[2017-07-08 04:00] VITALS: BP 112/55
[2017-07-08] MEDS: BENZONATATE 100 MG CAP PO SCH (06:04)
[2017-07-08] MEDS: GUAIFENESIN 600MG/DEXTROMETHORPHAN 30MG TABSR PO SCH (06:04)
[2017-07-08 07:49] VITALS: BP 112/58
[2017-07-08 09:50] VITALS: BP 112/58
[2017-07-08] MEDS: PANTOPRAZOLE SOD 40 MG TABEC PO SCH (09:50)
[2017-07-08] MEDS: CLOPIDOGREL BISULFATE 75 MG TAB PO SCH (09:50)
[2017-07-08] MEDS: METOPROLOL TARTRATE 25 MG TAB PO SCH (09:50)
[2017-07-08] MEDS: LISINOPRIL 2.5 MG TAB PO SCH (09:50)
[2017-07-08] MEDS: ASPIRIN 81 MG CHEW TAB PO SCH (09:50)
[2017-07-08 12:00] VITALS: BP 142/61
[2017-07-08] MEDS ORDERED: LIPITOR20 MG PO (13:00)
[2017-07-08] MEDS ORDERED: NITROSTAT0.4 MG SL (13:00)
[2017-07-08] MEDS ORDERED: PLAVIX75 MG PO (13:00)
[2017-07-08] MEDS ORDERED: PROTONIX40 MG/ML PO (13:00)
[2017-07-08] MEDS ORDERED: ASPIRIN CHEW81 MG PO (13:00)
--- NOTE | 2017-07-08 19:43 | Discharge Summary ---
PRINCIPAL DIAGNOSES 1. Non-ST elevation myocardial infarction. 2. Cardiogenic shock, status post LifeVest placement. 3. Hyperlipidemia. 4. Cigarette abuse. 5. Normocytic anemia. 6. Benign prostatic hypertrophy. 7. Severe systolic congestive heart failure with ejection fraction less than 20%, status post LifeVest placement. SECONDARY DIAGNOSIS: Hypertension. CHIEF COMPLAINT: Chest pain. HISTORY OF PRESENT ILLNESS: This 76-year-old man was admitted with chest pain. For further details, please refer to history and physical. HOSPITAL COURSE: The patient was found to have non-ST elevation AK. Also, found to have severe systolic congestive heart failure with left ventricular ejection fraction less than 20%. Heart catheterization showed diffuse disease. He needs medical management. The patient is doing well. He received LifeVest today and will be transitioned home with that device. He will need continued medical management and follow up with his primary care physician. DISCHARGE MEDICATIONS: Lipitor, Plavix, aspirin, RAFA inhibitor, beta anish. FOLLOWUP INSTRUCTIONS: Follow up with primary care physician in one week and river expedition guide in 2 weeks. CONDITION ON DISCHARGE: Stable and improving. DISPOSITION: Home. ANGELA BERNAL MD Job#: [id number]
== END 2017-07-08 14:14 | disposition home or self-care (01) | DRG 280 ==
LOC: ER 11:50 → ERHOLD 13:02 → UNDOADMIN 13:02 → CATH LAB 13:23 → ERHOLD 17:33 → ICU 17:35 → MED/SURG 07-06 21:40
PROVIDERS: ADMIT Internal Medicine; ATTEND Internal Medicine
PROC: 4A023N7 Measurement of Cardiac Sampling and Pressure, Left Heart, Percutaneous Approach (ICD-10-PCS; principal; 2017-07-05)
PROC: B2111ZZ Fluoroscopy of Multiple Coronary Arteries using Low Osmolar Contrast (ICD-10-PCS; 2017-07-05)
PROC: B2121ZZ Fluoroscopy of Single Coronary Artery Bypass Graft using Low Osmolar Contrast (ICD-10-PCS; 2017-07-05)
PROC: B2181ZZ Fluoroscopy of Left Internal Mammary Bypass Graft using Low Osmolar Contrast (ICD-10-PCS; 2017-07-05)
DX: I21.4 Non-ST elevation (NSTEMI) myocardial infarction (principal); R57.0 Cardiogenic shock; I50.20 Unspecified systolic (congestive) heart failure; I25.10 Atherosclerotic heart disease of native coronary artery without angina pectoris; I25.82 Chronic total occlusion of coronary artery; E78.5 Hyperlipidemia, unspecified; D64.9 Anemia, unspecified; N40.0 Benign prostatic hyperplasia without lower urinary tract symptoms; I25.5 Ischemic cardiomyopathy; Z87.891 Personal history of nicotine dependence; Z79.82 Long term (current) use of aspirin; Z79.02 Long term (current) use of antithrombotics/antiplatelets
CPT/HCPCS: 36140; 36200; 36415; 71010; 75756; 77002; 80048; 80053; 80061; 82550; 82553; 83036; 83735; 83880; 84443; 84484; 85025; 85610; 85730; 87070; 87205; 87400; 93005; 93306; 93452; 93459; 99285; J1644; J1956; J2001; J2250; J7030; J7050; Q9967

== ENCOUNTER 2017-11-22 08:14 | Inpatient (IN) | payer MEDICARE ==
[~2017-11-22] VITALS: Ht 160 cm; Wt 79.4 kg
[~2017-11-22 08:14] MED LIST: ASPIRIN CHEW81 MG PO; ASPIRIN325 MG PO; DIPHENHYDRAMINE25 MG PO; FLOMAX0.4 MG PO; LIPITOR20 MG PO; LISINOPRIL2.5 MG PO; METOPROLOL TART25 MG PO; NITROGLYCERIN0.4 MG SL; NITROSTAT0.4 MG SL; PLAVIX75 MG PO; PROTONIX40 MG/ML PO
--- OUTSIDE RECORDS SUMMARY | 2017-11-22 08:17 | XMS REPORT ---
Author [facility] Address Unknown Phone Unavailable Care Team Providers Care Bakery Chef Name Role Phone ANGELA BERNAL Unavailable Unavailable Problems This patient has no known problems. Allergies, Adverse Reactions, Alerts This patient has no known allergies or adverse reactions. Medications This patient has no known medications. Results Test Description Test Time Test Comments Text Results Atomic Results Result Comments CHEST SINGLE (PORTABLE) [place] [address] Patient Name: SALLIE FLYNN MR #: [id number] : 1940 Age/Sex: 76/M Req #: [id number] Adm Physician: ANGELA BERNAL MD Ordered by: ANGELA BERNAL MD Report #: [id number] Location: ICU Room/Bed: ICU [facility] ___ Procedure: [id number] DX/CHEST SINGLE (PORTABLE) Exam Date: 07/05/17 Exam Time: 0615 REPORT STATUS: Signed EXAMINATION: CHEST SINGLE (PORTABLE) INDICATION: Cough, fever COMPARISON: 07/01/2017 FINDINGS: TUBES and LINES: None. LUNGS: Lungs are not well inflated. Confluent right lower lobe and right mid lung opacities compatible with developing infection PLEURA: No pleural effusion or pneumothorax. HEART AND MEDIASTINUM: Cardiac size is mildly enlarged. Midline sternotomy wires are intact. BONES AND SOFT TISSUES: No acute osseous lesion. Soft tissues are unremarkable. UPPER ABDOMEN: No free air under the diaphragm. IMPRESSION: Right lung airspace disease with air bronchograms suspicious for pneumonia. Follow-up until resolution. Signed by: Dr. Abhishek Newton M.D. on 07/05/2017 6:55 AM Dictated By: ABHISHEK LEVY MD 4 Transcribed By: GRADY on 07/05/17654 COPY TO: ANGELA BERNAL MD CHEST SINGLE (PORTABLE) [place] [address] Patient Name: SALLIE FLYNN MR #: [id number] : 1940 Age/Sex: 76/M Req #: [id number] Adm Physician: Ordered by: DIONISIO BRITT MD Report #: [id number] Location: ER Room/Bed: Procedure: [id number] DX/CHEST SINGLE (PORTABLE) Exam Date: 07/01/17 Exam Time: 1245 REPORT STATUS: Signed Portable chest x -ray CPT code 82106 INDICATION: Pain COMPARISON: None FINDINGS: Frontal view of the chest obtained at 1030 hours. The cardiac silhouette is enlarged. Median sternotomy wires are intact. The pulmonary vasculature is prominent centrally. The lungs demonstrate diffuse hyperinflation. There is haziness in the right lung base suggestive of atelectasis or infiltrate. The pulmonary interstitium is mildly prominent. No large effusions. There is no pneumothorax. The osseous structures are intact and normal in morphology. IMPRESSION: 1. Cardiomegaly. Prominence of the central pulmonary vasculature could be the result of pulmonary venous hypertension. 2. Mild prominence of the pulmonary interstitium suggestive of edema. 3. Right basilar airspace opacity is suggestive of atelectasis or infiltrate. Consider PA and lateral chest x-ray for further characterization when clinically feasible. Signed by: Dr. Mei Reyes MD on 07/01/2017 12:56 PM Dictated By: MEI REYES MD 1252 Transcribed By: GRADY on 07/01/17 1256 COPY TO: DIONISIO BRITT MD
[2017-11-22] MEDS ORDERED: ASPIRIN 81 MG CHEW TAB PO ONE ×2 (08:30→11:15)
[2017-11-22 08:49] LABS: BASOPHILS % 0.5 % (0.0-1.0); EOSINOPHILS # (AUTO) 0.1 (0.0-0.4); HEMATOCRIT 41.2 % (38.2-49.6); LYMPHOCYTES # (AUTO) 1.4 (1.0-3.2); LYMPHOCYTES % 16.4 % (18.0-39.1); MEAN CORPUSCULAR HEMOGLOBIN 32.6 pg (28-32); MEAN CORPUSCULAR VOLUME 95.8 fL (81-99); MONOCYTES # (AUTO) 0.5 (0.2-0.8); MONOCYTES % 6.1 % (4.4-11.3); NEUTROPHILS # (AUTO) 6.5 (2.1-6.9); NEUTROPHILS % 75.3 % (38.7-80.0); PLATELET COUNT 180 x10e3/uL (140-360); RED CELL DISTRIBUTION WIDTH 14.4 % (11.7-14.4)
[2017-11-22 08:53] LABS: INR 1.1; PROTHROMBIN TIME 13.4 seconds (11.9-14.5)
[2017-11-22 08:54] LABS: PARTIAL THROMBOPLASTIN TIME 29.2 seconds (23.8-35.5)
[2017-11-22 09:03] LABS: ALBUMIN 3.5 g/dL (3.5-5.0); ALBUMIN/GLOBULIN RATIO 1.1 (0.8-2.0); CALCIUM 8.8 mg/dL (8.4-10.2); CREATININE, SERUM 1.23 mg/dL (0.72-1.25)
[2017-11-22 09:09] LABS: CREATINE KINASE MB 1.3 ng/mL (0-5.0)
--- NOTE | 2017-11-22 09:59 | Diagnostic Imaging Report ---
Examination: CT head without contrast Clinical Indication: Headache. Unsteady gait. Technique: Transaxial noncontrast images from the skull base through the vertex were obtained. Sagittal and coronal reformatted images were done. Comparison: None. Findings: Scalp: No abnormalities. Bones: Intact. No fractures. No blastic or lytic lesions. Brain sulci: Appropriate for patient's age. Ventricles: Normal in size and configuration. No hydrocephalus. . Extra-axial space: No abnormalities. Parenchyma: There are patchy areas of low-attenuation within subcortical and periventricular white matter, nonspecific, but could represent microvascular ischemic disease. No masses, hemorrhage, or acute or chronic cortical based vascular insults. Suprasellar region: No abnormalities. Craniocervical junction: The foramen magnum is patent. No Chiari one malformation. Incidental findings: Atherosclerotic calcification of the cavernous and supraclinoid internal carotid arteries. Impression: 1. No acute intracranial abnormality. 2. Mild chronic microvascular ischemic change. Signed by: Dr. Jeannie Montague M.D. on 11/22/2017 9:55 AM
[2017-11-22 11:14] LABS: CLARITY,URINE CLEAR (CLEAR); COLOR,URINE AMBER (YELLOW)
[2017-11-22 11:16] LABS: BILIRUBIN,URINE NEGATIVE (NEGATIVE); KETONES,URINE NEGATIVE (NEGATIVE); LEUKOCYTE ESTERASE ,URINE NEGATIVE (NEGATIVE); NITRITE,URINE NEGATIVE (NEGATIVE); PROTEIN,URINE DIPSTICK NEGATIVE (NEGATIVE); URINE UROBILINOGEN 0.2 mg/dL (0.2 - 1)
[2017-11-22] MEDS: SODIUM CHLORIDE 0.9% 1000ML 1,000 ML IV SCH (11:48)
[2017-11-22 11:52] LABS: BACTERIA,URINE RARE /HPF; EPITHELIAL CELLS,URINE RARE /LPF
[2017-11-22] MEDS ORDERED: ENOXAPARIN SOD INJ 40 MG/0.4 ML SYR SC SCH (17:00)
[2017-11-22 17:05] LABS: CREATINE KINASE MB 4.8 ng/mL (0-5.0)
[2017-11-22 17:07] LABS: CHOL/HDL RATIO 3.2 (3.9-4.7)
--- NOTE | 2017-11-22 17:40 | Consultation ---
DATE OF CONSULTATION: November 22, 2017 NEUROLOGY CONSULT HISTORY OF PRESENT ILLNESS: Mr. Campos is a 77-year-old right hand dominant man with past medical history significant for hypertension, hyperlipidemia, and coronary artery disease, who presented to the emergency center at [facility] on November 22, 2017, with multiple symptoms. Mr. Campos awoke on the morning of admission with an unusual sensation in his head. When he sat up in his bed, he felt like there was "liquid moving through his head." Other symptoms endorsed by the patient include numbness over one side of the head/face (right V1 distribution), blurred vision, and possible dizziness. Mr. Campos endorses pain at the vertex of the skull. He cannot describe the quality of the pain but reports it is constant. He does not report photophobia or phonophobia. He does report nausea without vomiting. As stated above, the patient has possibly experienced some dizziness as well. Mr. Campos does not endorse dysarthria, aphasia, facial droop, or numbness. He reports generalized weakness. Mr. Campos has not ambulated today due to concerns he may fall. Mr. Campos was brought to the emergency center at [facility] by family members for further evaluation and treatment. Upon admission to the emergency center, the patient was afebrile with a blood pressure of 145/91 mmHg and a pulse of 84 beats per minute. The neurological examination performed by the emergency center physician was reportedly nonfocal. A CT of the brain without contrast was performed but did not show evidence of recent large territorial ischemia, hemorrhage, mass, or mass effect. Mr. Campos will be admitted to [facility] for further evaluation and treatment of his symptoms. REVIEW OF SYSTEMS: Nausea, blurred vision, numbness over the right side of the head and face, generalized weakness, headache, possible dizziness. PAST MEDICAL HISTORY: Hypertension, hyperlipidemia, coronary artery disease with prior heart attack, GERD, and benign prostatic hypertrophy. PAST SURGICAL HISTORY: Cardiac stent placement, 4-vessel CABG. PAST HOSPITALIZATIONS: Surgeries and procedures as listed, multiple hospitalizations for heart disease. FAMILY HISTORY: The patient's paternal and maternal grandparents are . Their medical histories are unknown. Mr. Campos's father is . His medical history is unknown. Mr. Campos's mother is . She had diabetes mellitus. Mr. Campos has 8 siblings, but 3 have . One brother from lung disease. The cause of for the other 2 siblings is not known. The remaining 5 siblings who are still living are reportedly healthy. Mr. Campos has 2 sons and 7 daughters, all of whom are alive and healthy. SOCIAL HISTORY: The patient is . He completed school through either the third or fourth grade in [place]. 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 The patient does not report current or prior tobacco or recreational drug use. He drinks 1 shot of liquor (tequila) per day. HOME MEDICATIONS: Aspirin 81 mg by mouth daily, Plavix 75 mg by mouth daily, lisinopril 5 mg by mouth daily, Lasix 40 mg by mouth daily, isosorbide mononitrate ER 60 mg by mouth daily, metoprolol 25 mg by mouth twice daily, atorvastatin 40 mg by mouth daily, pantoprazole 40 mg by mouth daily, potassium chloride 20 mEq by mouth daily, tamsulosin 0.4 mg by mouth daily, Ranexa 500 mg by mouth twice daily, nitroglycerin 0.4 mg sublingually as needed for chest pain, Advil by mouth as needed for pain. ALLERGIES: NO KNOWN DRUG ALLERGIES. NO KNOWN FOOD ALLERGIES. NO KNOWN ALLERGIES TO LATEX. NO KNOWN ALLERGIES TO IODINE OR OTHER CONTRAST MATERIALS. PHYSICAL EXAMINATION: VITAL SIGNS: Height 63 inches, weight 168 pounds, BMI 29.8 kg per meter squared, blood pressure 133/80 mmHg, pulse 78 beats per minute, respiratory rate 18 breaths per minute, oxygen saturation 100% on room air. GENERAL: The patient is awake and alert, does not appear distressed. Overweight. HEENT: Normocephalic, atraumatic. Pupils are surgical. Moist mucous membranes. NECK: Supple. No appreciable thyromegaly. No appreciable carotid bruits. CARDIOVASCULAR: S1, S2, regular rate and rhythm. No murmurs, rubs, or gallops. RESPIRATORY: Clear to auscultation bilaterally. No wheezes, rhonchi, or rales. EXTREMITIES: The skin is warm and dry. No clubbing, cyanosis, or edema. The posterior tibial and dorsalis pedis pulses are 1+ and symmetric. SKIN: No rashes or lesions. NEUROLOGIC Memory/Attention: The patient is awake and alert, oriented to person, place, time, and situation. Cranial Nerves: Cranial nerve 1--Not tested. Cranial nerve 2, 3, 4, and 6--Pupils are surgical, extraocular movements intact, no nystagmus. Cranial nerve 5--Sensation to light touch and pinprick is intact in the bilateral V1 through V3 distributions. Strength of the temporalis and masseter muscles is within normal limits. Cranial nerve 7--Possible right facial asymmetry. Facial movements are symmetric. Strength is within normal limits. Cranial nerve 8--Hearing is intact to finger rub bilaterally. Cranial nerve 9, 10--The soft palate elevates equally and symmetrically. Cranial nerve 11--Normal strength of the bilateral sternocleidomastoid and trapezius muscles. Cranial nerve 12--The tongue protrudes midline and moves symmetrically from side to side. Strength: Bulk is normal. Strength is 5/5 in the bilateral deltoids, biceps, triceps, wrist flexors and extensors, finger flexors and extensors, intrinsic hand muscles, hip flexors, knee flexors and extensors, ankle dorsiflexion and plantar flexion, and intrinsic foot muscles. Tone is normal. DTRs: Deep tendon reflexes are 1+ and symmetric at the triceps, biceps, brachioradialis, patellas, and Achilles. Plantar responses are flexor bilaterally. Sensation: Sensation is intact to light touch and pinprick in both arms and both legs. Cerebellar: Otpjuu-vqnr-cnoypy and heel-sandoval movements are intact without dysmetria or other impairment. Gait: Deferred. Speech: Spontaneous speech is normal without appreciable dysarthria or aphasia. Repetition is intact. Involuntary Movements: None. Pronator Drift: Right arm. LABORATORY DATA: Sodium 141, potassium 4.0, chloride 107, carbon dioxide 24, anion gap 14.0, BUN 23, creatinine 1.23, estimated GFR 57. BUN to creatinine ratio 19. Glucose 115. Calcium 8.8. Total bilirubin 1.0, AST 15, ALT 11, alkaline phosphatase 52, total protein 6.7, albumin 3.5, globulin 3.2. Albumin to globulin ratio 1.1. Creatine kinase 59, CK-MB 1.30, troponin I 0.027. The CBC with differential and platelets reveals a white blood cell count of 8.65 with 75.3% neutrophils, 16.4% lymphocytes, 6.1% monocytes, 1.0% eosinophils, and 0.5% basophils. PT 13.4, INR 1.10, PTT 29.2. A urinalysis is unremarkable. Ethyl alcohol level 11.8. DIAGNOSTIC STUDIES: EKG November 22, 2017: Normal sinus rhythm at [address] of the brain without contrast November 22, 2017: On my review, there is no evidence of recent large territorial ischemia, hemorrhage, mass, or mass effect. There are changes compatible with chronic mild to moderate small-vessel ischemic disease. Cerebral volumes are normal for age. ASSESSMENT AND PLAN: Mr. Campos is a 77-year-old right hand dominant man with multiple vascular risk factors who awoke this morning with multiple symptoms as described in the history of present illness. The patient's neurological examination is significant for possible right facial asymmetry and drift in the right arm. His laboratory data and other diagnostic studies have been reviewed and are documented above. A person awakening with multiple neurological symptoms raises concerns for a transient ischemic attack/stroke. Therefore, a complete stroke evaluation is recommended. 1. The patient will be placed on telemetry while in the hospital. 2. Lipid panel and hemoglobin A1c. 3. MRI of brain without contrast. 4. Echocardiogram. 5. Bilateral carotid artery ultrasound with Doppler. 6. Continue aspirin/Plavix for the time being. 7. Allow permissive hypertension pending completion of vessel studies. 8. Follow up lipid panel. Continue home medication. 9. Follow up hemoglobin A1c. Tight glycemic control is recommended. 10. Speech and physical therapy consultations will be ordered. 11. GI prophylaxis with Pepcid 20 mg by mouth before meals twice daily. DVT prophylaxis with Lovenox 40 mg subcutaneously daily. 12. Defer treatment of the remaining medical comorbidities to the primary and other services. Thank you for this consultation. I will continue to follow this patient while he remains in the hospital. Time spent: 50 minutes. Job#: [id number] EV CELENA
[2017-11-22] MEDS ORDERED: POTASSIUM CHLO10 ME1 PO (18:57)
[2017-11-22] MEDS ORDERED: ISOSORBIDE MONO20 MG PO (18:57)
[2017-11-22] MEDS ORDERED: RANEXA500 MG PO (18:57)
[2017-11-22] MEDS ORDERED: NITROGLYCERIN 0.4 MG SUBL SL PRN (19:00)
[2017-11-22] MEDS ORDERED: ATORVASTATIN 20 MG TAB PO SCH (21:00)
[2017-11-22] MEDS: ATORVASTATIN 40 MG TAB PO SCH (21:00)
[2017-11-22 21:24] VITALS: BP 153/82
[2017-11-22 21:30] VITALS: BP 153/82
--- NOTE | 2017-11-22 21:31 | Diagnostic Imaging Report ---
History: Dizzy stroke Comparison studies: None Technique: Axial images were obtained from the skull base to the vertex. Coronal and sagittal reconstructions obtained from the axial data. Findings: Scalp/skull: No abnormalities. No fractures, blastic or lytic lesions. Extra-axial spaces: No masses. No fluid collections. Brain sulci: Appropriate for age. Ventricles: Normal in size and configuration. No hydrocephalus. Parenchyma: Diffusion restriction and FLAIR hyperintensity throughout the inferomedial right cerebellar hemisphere. Loss of flow-void in the right vertebral artery concerning for right vertebral artery thrombus. Mild supratentorial mitral vascular ischemic changes. Bilateral pontine chronic lacunar infarcts. No masses or hemorrhage. Sellar/suprasellar region: No abnormalities Craniocervical junction: Patent foramen magnum. No Chiari one malformation. IMPRESSION: 1. Acute nonhemorrhagic infarct throughout the inferomedial right cerebellum in the right PICA territory. 2. Loss of flow-void in the right vertebral artery highly concerning for acute right vertebral artery thrombus. Findings discussed with Dr. Elizondo at 6:50 PM on 11/22/2017. Signed by: DR Gustavo Gunter M.D. on 11/22/2017 9:27 PM
[2017-11-22 22:14] LABS: CREATINE KINASE MB 6.3 ng/mL (0-5.0)
[2017-11-23] VITALS (8 sets, daily range): BP systolic 123–152; BP diastolic 67–93
[2017-11-23] MEDS: SODIUM CHLORIDE 0.9% 1000ML 1,000 ML IV SCH ×4 (02:30→17:43)
[2017-11-23 06:09] LABS: CREATINE KINASE MB 7.5 ng/mL (0-5.0)
[2017-11-23] MEDS: FAMOTIDINE 20 MG TAB PO SCH ×2 (07:30→15:43)
[2017-11-23] MEDS: ISOSORBIDE MONONITRATE 20 MG TAB PO SCH (08:38)
[2017-11-23] MEDS: POTASSIUM CHLORIDE 10 MEQ TABCR PO SCH (08:46)
[2017-11-23] MEDS: LISINOPRIL 2.5 MG TAB PO SCH (08:49)
[2017-11-23] MEDS: PANTOPRAZOLE SOD 40 MG TABEC PO SCH (08:49)
[2017-11-23] MEDS: METOPROLOL TARTRATE 25 MG TAB PO SCH ×2 (08:49→15:43)
[2017-11-23] MEDS ORDERED: TAMSULOSIN HCL 0.4 MG CAP PO SCH (09:00)
[2017-11-23] MEDS ORDERED: CLOPIDOGREL BISULFATE 75 MG TAB PO SCH (09:00)
[2017-11-23] MEDS ORDERED: ASPIRIN 81 MG CHEW TAB PO SCH (09:00)
--- NOTE | 2017-11-23 11:39 | History and Physical ---
PRIMARY CARE PHYSICIAN: Dr. Toni Lewis CHIEF COMPLAINT: Headache and confusion. HISTORY OF PRESENT ILLNESS: A 77-year-old man with a history of coronary artery disease, who drinks about 1 shot of Tequila every day, now developing headache in the frontal region for 1 day rated at 6/10 with blurred vision in the right eye and confusion. The patient also has some difficulty walking. Brought to the hospital. Here he was found to have acute ischemic stroke. He is admitted for further evaluation and management. The patient does have chronic angina, which is unchanged. PAST MEDICAL HISTORY: Coronary artery disease, status post coronary artery bypass grafting in 2000, coronary artery disease, status post stents in 1997, cigarette abuse, alcohol use about 1 Tequila shot per day, hypertension, hyperlipidemia, BPH, [id number] OH in June 2017, cardiogenic shock, status post Life Vest placement, severe systolic congestive heart failure, left ventricular ejection fraction less than 20%, status post Life Vest placement in June 2017. PAST SURGICAL HISTORY: Coronary artery bypass grafting in 2000, coronary stents in 1997. ALLERGIES: PER ELECTRONIC MEDICAL RECORD. FAMILY HISTORY/SOCIAL HISTORY: Patient is retired and . He quit smoking. Drinks 1 Tequila shot per day. No illicits. MEDICATIONS: Per electronic medical records. REVIEW OF SYSTEMS: Denies any dizziness or chest pain at this time. PHYSICAL EXAMINATION VITAL SIGNS: Have been reviewed. GENERAL: A tired-appearing man resting in bed. HEENT: Anicteric. Pupils respond to light. No oral lesions. CARDIOVASCULAR: Normal S1 and S2. LUNGS: Moderate breath sounds. ABDOMEN: Soft, nontender and nondistended. EXTREMITIES: No edema or calf tenderness. NEUROLOGICAL: He is alert and oriented times 3. Moves all extremities. He has no visual field deficits. Motor strength is 5/5/ in all extremities. His confusion has resolved. SKIN: Dry. PSYCHIATRIC: Normal affect. LABS: Reviewed. MEDICATIONS: Reviewed. ASSESSMENT AND PLAN: A 77-year-old man with: 1. Acute ischemic stroke in the right cerebellar region: Will continue Plavix, aspirin, statin, blood pressure control. Will consult physical therapy. 2. Right vertebral artery occlusion: Will continue medication treatment at this time of Plavix, aspirin, blood pressure control. 3. Acute kidney injury: Rehydrate and reassess. 4. Elevated troponin: Will trend. 5. Coronary artery disease with history of stents and coronary artery bypass grafting: Will trend enzymes. 6. Metabolic encephalopathy: This is resolving. 7. Hypertension: Continue blood pressure medicines. 8. Hyperlipidemia: Continue statin medications. LDL was 86, triglycerides 46. 9. Alcohol use: He drinks 1 shot of Tequila daily. His alcohol level was elevated here. 10. Obesity: Body mass index is 31.4. His hemoglobin A1c was 5.3. Does not have diabetes. 11. Ambulatory dysfunction: Will get physical therapy on board to assess and address. 12. Prophylaxis: Will use Lovenox and proton pump inhibitor. 13. Disposition: Physical therapy. Follow up labs and monitor closely. Job#: [id number] HOSEA
--- NOTE | 2017-11-23 12:26 | Consultation ---
DATE OF CONSULTATION: November 23, 2017 REQUESTING PHYSICIAN: Dr. Deuce Vazquez REASON FOR CONSULTATION: Elevated troponin and low ejection fraction. HPI: This is a pleasant, 77-year-old male that presented with dizziness and weakness. According to the family at the bedside, he started having problem with movement. He was confused and having some falls. They brought him into the emergency room for evaluation. He had a CT done that showed an acute stroke, and he was admitted for further evaluation. He was also found to have an elevated troponin of 0.7. He denies any chest pain, any palpitations, any headache or diaphoresis. BNP was not done. He has an extensive cardiac history with open heart surgery in the past, 4 vessels. He still continues to smoke and drink and is noncompliant with medications. He had a cardiac catheterization done in July 2017. No intervention was done due to the diffuse nature of his cardiac disease. He was sent home with a LifeVest. He only had the LifeVest for only 2 months, and he stopped wearing it. He was sent by Dr. Sharpe to Dr. Olson in the [facility] for further cardiac evaluation. PAST MEDICAL HISTORY: Hypertension, hyperlipidemia, CAD, anemia, BPH, systolic CHF, CVA, cardiogenic shock. PAST SURGICAL HISTORY: Open heart surgery in 2000, cardiac stents, cardiac catheterization recently in July with no intervention. FAMILY HISTORY: Positive for CAD. SOCIAL HISTORY: He smokes and drinks daily. He lives at home with family. MEDICATIONS: See med list. ALLERGIES: HE IS NOT ALLERGIC TO ANY MEDICATION. REVIEW OF SYSTEMS: Negative, except those mentioned above. PHYSICAL EXAMINATION VITAL SIGNS: Temperature 98, heart rate 67, blood pressure 138/82, respirations 16, oxygen saturation 98% on room air. GENERAL: He is awake, alert, oriented times 3. HEENT: Mucous membranes moist. NECK: Supple. LUNGS: Bilateral clear to auscultation. CARDIOVASCULAR: S1, S2 present. ABDOMEN: Soft. EXTREMITIES: Bilateral lower extremities with no edema. NEUROLOGIC: Able to move all extremities. LABS: Sodium 141, potassium 4.0, chloride 107, CO2 24, BUN 23, creatinine 1.23. Glucose 115. White blood cells 8.65, hemoglobin 14.0, hematocrit 41.2, platelets 180. PT 13.4, PTT 29.2, INR 1.10. IMPRESSION 1. Fgj-OK-rlozmqfqh myocardial infarction. 2. Acute stroke. 3. Systolic congestive heart failure. 4. Hypertension. 5. Coronary artery disease with stent. 6. Tobacco and alcohol abuse. ASSESSMENT AND PLAN 1. He had cardiac catheterization in July with no PCI due to the diffuse nature of his CAD. 2. Will go ahead and get an echocardiogram to reassess the LV and valve function. 3. He had LifeVest worn for 60 days only. 4. Will continue permissive hypertension. 5. Will get bilateral carotid Doppler to rule out any occlusion. 6. Will consult EP for possible ICD placement. 7. Will continue medical management for now. Further cardiac workup pending clinical course. Thank you for this consultation. Dictated by Naya Newell NP. Job#: [id number]
[2017-11-23] MEDS ORDERED: HYDRALAZINE HCL 20 MG/ML VIAL IV PRN (13:45)
[2017-11-23] MEDS: ENOXAPARIN SOD INJ 40 MG/0.4 ML SYR SC SCH ×2 (14:00→21:00)
--- NOTE | 2017-11-23 14:40 | Consultation ---
DATE OF CONSULTATION: November 23, 2017 REQUESTING PHYSICIAN: Dr. Sharpe REASON FOR CONSULTATION: Evaluation of the patient for possible defibrillator. CHIEF COMPLAINT: Dizziness, weakness and shortness of breath. HISTORY OF PRESENT ILLNESS: Mr. Campos is a 77-year-old gentleman with a history of coronary artery disease with bypass surgery 17 years ago, ischemic cardiomyopathy with ejection fraction of 25% to 30%, wearing a Life Vest, right bundle branch block, diabetes mellitus, hypertension, who was admitted to the hospital with dizziness, lightheadedness and off balance feeling. The patient was noted to have an acute stroke. He is being evaluated for that. We were consulted for evaluation of possible defibrillator. The patient has been wearing a Life Vest for over 90 days. His ejection fraction is still 25% to 30% on optimal medical management with beta blockers, RAFA inhibitors and diuretics. He does have an IVCD with QRS duration of 150 milliseconds. PAST MEDICAL HISTORY: As that listed in HPI. SOCIAL HISTORY: Negative for tobacco or drug abuse currently. Positive for alcohol use regularly. FAMILY HISTORY: Positive for diabetes mellitus and heart disease. Negative for cardiomyopathy or cardiac arrhythmias. REVIEW OF SYSTEMS: General, endocrine, respiratory, GI, dermatologic, lymphatic review of systems within normal limits. PHYSICAL EXAMINATION VITALS: Blood pressure is 130/70, heart rate is currently 77, respiratory rate 22, saturation is 98% on room air. GENERAL: Mr. Campos is a middle-aged elderly appearing male who is in no acute distress. HEENT: Mucous membranes are pink and moist. Anicteric and acyanotic. CARDIOVASCULAR: S1 and S2 audible. S3 is also audible. Regular rate and rhythm is noted. No murmurs or rubs are noted. RESPIRATORY: Lungs are clear to auscultation bilaterally. No rhonchi or rales noted. GI: Abdomen is soft, nondistended and nontender. Bowel sounds are heard in all 4 quadrants. EXTREMITIES: No clubbing, cyanosis or edema. Two plus pulses in all 4 extremities. NEUROLOGIC: Currently, he is alert and oriented times 3 with no focal neurologic deficits. LABORATORY STUDIES: Reviewed. EKG shows sinus rhythm with IVCD/left bundle branch block, and QRS duration between 140-145 milliseconds. Echocardiogram again shows an ejection fraction of 25% to 30%. According to the family, the patient's picking supervisor, Dr. Jones, has attempted a heart catheterization on him, but found that he has extensive scarring. Therefore, no revascularization is possible. IMPRESSION: Mr. Campos is a 77-year-old man with ischemic cardiomyopathy with ejection fraction of 25% to 30%, IVCD/left bundle branch block, QRS duration of 145 milliseconds, on optimal medical management for many years, who is admitted to the hospital with an acute stroke. He is resolving from the stroke, and is being evaluated for anticoagulation post stroke. However, he does meet primary prevention criteria for implantable cardioverter defibrillator therapy given the fact that he has been on optimal medical management for a number of years, and he still has an ejection fraction of 25% to 30%. Furthermore, he has a QRS duration of 145 milliseconds with a left bundle branch block morphology that would probably benefit from biventricular implantable cardioverter defibrillator therapy. I have discussed the risks, benefits and alternatives with him at great length. He understands and is agreeable to the plan. However, wants to discuss with his family at this time. Will tentatively plan for his biventricular implantable cardioverter defibrillator implant tomorrow. However, will wait for his family's decision on whether they want to proceed or not. Thank you for the consultation. Job#: [id number] HOSEA
[2017-11-23 15:15] LABS: CREATINE KINASE MB 5.9 ng/mL (0-5.0)
[2017-11-23] MEDS: TAMSULOSIN HCL 0.4 MG CAP PO SCH (21:00)
[2017-11-23] MEDS: ATORVASTATIN 40 MG TAB PO SCH (21:00)
[2017-11-24] VITALS (11 sets, daily range): BP systolic 130–153; BP diastolic 60–88
[2017-11-24] MEDS: SODIUM CHLORIDE 0.9% 1000ML 1,000 ML IV SCH ×2 (03:49→11:12)
[2017-11-24 06:33] LABS: BASOPHILS # (AUTO) 0.1 (0.0-0.1); BASOPHILS % 0.6 % (0.0-1.0); EOSINOPHILS # (AUTO) 0.1 (0.0-0.4); EOSINOPHILS % 0.7 % (0.0-6.0); HEMATOCRIT 42.3 % (38.2-49.6); HEMOGLOBIN 14.2 g/dL (14.0-18.0); LYMPHOCYTES # (AUTO) 1.5 (1.0-3.2); LYMPHOCYTES % 18.8 % (18.0-39.1); MEAN CORPUSCULAR HEMOGLOBIN 33.2 pg (28-32); MEAN CORPUSCULAR HGB CONC 33.6 g/dL (31-35); MEAN CORPUSCULAR VOLUME 98.8 fL (81-99); MONOCYTES # (AUTO) 0.8 (0.2-0.8); MONOCYTES % 10.2 % (4.4-11.3); NEUTROPHILS # (AUTO) 5.6 (2.1-6.9); NEUTROPHILS % 68.8 % (38.7-80.0); PLATELET COUNT 187 x10e3/uL (140-360); RED BLOOD COUNT 4.28 x10e6/uL (4.3-5.7); RED CELL DISTRIBUTION WIDTH 14.2 % (11.7-14.4)
[2017-11-24 07:11] LABS: ALANINE AMINOTRANSFERASE 10 IU/L (0-55); ALBUMIN 3.1 g/dL (3.5-5.0); ALBUMIN/GLOBULIN RATIO 1.1 (0.8-2.0); ALKALINE PHOSPHATASE 44 IU/L (40-150); ANION GAP 16.3 mmol/L (8-16); BLOOD UREA NITROGEN 19 mg/dL (7-26); BUN/CREATININE RATIO 18 (6-25); CALCIUM 8.5 mg/dL (8.4-10.2); CARBON DIOXIDE 22 mmol/L (22-29); CHLORIDE 106 mmol/L (98-107); CREATININE, SERUM 1.08 mg/dL (0.72-1.25); EST GLOMERULAR FILTRATION RATE > 60 ML/MIN (60-); GLUCOSE 71 mg/dL (74-118); POTASSIUM 4.3 mmol/L (3.5-5.1); SODIUM 140 mmol/L (136-145)
[2017-11-24 07:14] LABS: INR 1.16; PROTHROMBIN TIME 13.9 seconds (11.9-14.5)
[2017-11-24 07:15] LABS: PARTIAL THROMBOPLASTIN TIME 32.3 seconds (23.8-35.5)
--- NOTE | 2017-11-24 07:27 | Progress Note ---
DATE: November 24, 2017 TIME: 6:58 a.m. OVERNIGHT: No events. REVIEW OF SYSTEMS: Denies any dizziness. VITAL SIGNS: Reviewed. PHYSICAL EXAMINATION GENERAL: A tired-appearing man resting in bed. HEENT: Anicteric. CARDIOVASCULAR: Normal S1 and S2. LUNGS: Moderate breath sounds. ABDOMEN: Soft, nontender and nondistended. EXTREMITIES: No edema. SKIN: Dry. PSYCHIATRIC: Normal affect. LABS: Reviewed. MEDICATIONS: Reviewed. ASSESSMENT AND PLAN: A 77-year-old man. 1. Acute ischemic stroke in the right cerebellar region. 2. Right vertebral artery occlusion. 3. Acute kidney injury. 4. Elevated troponin. 5. Coronary artery disease with history of stents and coronary artery bypass grafting. 6. Severe systolic congestive heart failure with LifeVest in the past. 7. Hypertension. 8. Hyperlipidemia. 9. Daily alcohol use. 10. Obesity. Body mass index is 31.4. 11. Ambulatory dysfunction. 12. Aau-HT-vcimnaqrv myocardial infarction. PLAN 1. AICD placement pending. Patient wants the device. 2. Patient did have a gri-FU-rxjdstoss OR. Will continue medical treatment at this time with statin, beta anish, RAFA inhibitor, nitrates. Plan to start aspirin prior to discharge. 3. The blood pressure is controlled. 4. Follow up with marketing automation specialist. Job#: [id number]
[2017-11-24] MEDS: FAMOTIDINE 20 MG TAB PO SCH ×2 (07:30→16:30)
[2017-11-24] MEDS: ISOSORBIDE MONONITRATE 20 MG TAB PO SCH (08:21)
[2017-11-24] MEDS: POTASSIUM CHLORIDE 10 MEQ TABCR PO SCH (08:22)
[2017-11-24] MEDS: PANTOPRAZOLE SOD 40 MG TABEC PO SCH (08:22)
[2017-11-24] MEDS: LISINOPRIL 2.5 MG TAB PO SCH (08:22)
[2017-11-24] MEDS: METOPROLOL TARTRATE 25 MG TAB PO SCH ×2 (08:22→17:00)
[2017-11-24] MEDS: ENOXAPARIN SOD INJ 40 MG/0.4 ML SYR SC SCH (08:23)
[2017-11-24] MEDS ORDERED: BACITRACIN 50,000 UNIT VIAL ONE ×2 (08:58→10:17)
[2017-11-24] MEDS ORDERED: LIDOCAINE HCL 2% LOCAL 20 ML VIAL ONE (08:58)
[2017-11-24] MEDS ORDERED: MIDAZOLAM HCL 2 MG/2 ML VIAL ONE (08:58)
[2017-11-24] MEDS ORDERED: SODIUM CHLORIDE 0.9% 1000ML 1,000 ML ONE ×2 (08:58→10:17)
[2017-11-24] MEDS ORDERED: FENTANYL CITRATE/PF 100MCG/2 ML INJ ONE (08:58)
[2017-11-24] MEDS ORDERED: SODIUM CHLORIDE 0.9% 500ML 1,000 ML ONE (08:58)
[2017-11-24] MEDS ORDERED: CEFAZOLIN SOD 1 GM VIAL ONE (10:03)
[2017-11-24] MEDS ORDERED: SODIUM CHLORIDE 0.9% 100 ML 0 ML ONE (10:03)
[2017-11-24] MEDS ORDERED: VANCOMYCIN 1GM/NS 250 ML 250 ML ONE (10:03)
--- NOTE | 2017-11-24 12:10 | Diagnostic Imaging Report ---
PROCEDURE: A single AP view of the chest. COMPARISON: 07/05/17 INDICATIONS: PACEMAKER PLACEMENT FINDINGS: Lines/tubes: New dual lead cardiac device in place with distal leads overlying right atrium and right ventricle. Lungs: Limited by body habitus and low lung volumes. Pulmonary vascular congestion and mild interstitial edema. Pleura: There is no visible pneumothorax. Possible trace bilateral pleural effusions. Heart and mediastinum: Enlarged cardiac silhouette. Bones: No acute bony abnormality. IMPRESSION: Pulmonary vascular congestion and mild interstitial edema. Possible trace bilateral pleural effusions. New dual lead cardiac device in place. No visible pneumothorax. Dictated by: Sam Chapman M.D. on 11/24/2017 at 12:12 Electronically approved by: Sam Chapman M.D. on 11/24/2017 at 12:12
[2017-11-24] MEDS ORDERED: MORPHINE SULFATE 2 MG/ML SYR IV PRN (13:15)
[2017-11-24] MEDS: MINOCYCLINE HCL 50 MG CAP PO SCH ×2 (14:00→19:30)
[2017-11-24] MEDS: DEXTROSE 5%/0.45% SOD CHL 1,000 ML IV SCH (14:51)
[2017-11-24] MEDS: ACETAMINOPHEN/CODEINE 300MG - 30MG TAB PO SCH ×2 (17:46→22:49)
[2017-11-24] MEDS: ATORVASTATIN 40 MG TAB PO SCH (19:30)
[2017-11-24] MEDS: TAMSULOSIN HCL 0.4 MG CAP PO SCH (19:30)
[2017-11-25] VITALS (8 sets, daily range): BP systolic 117–162; BP diastolic 56–85
[2017-11-25] MEDS ORDERED: MINOCYCLINE HCL50 MG PO (02:36)
[2017-11-25] MEDS ORDERED: TYLENOL WITH C1 EACH PO (02:36)
[2017-11-25] MEDS: ACETAMINOPHEN/CODEINE 300MG - 30MG TAB PO SCH ×4 (05:04→23:51)
--- NOTE | 2017-11-25 06:28 | Diagnostic Imaging Report ---
EXAM: CHEST SINGLE (PORTABLE), AP 1 view INDICATION: Status post a CAD placement COMPARISON: AP view the chest November 24, 2017 FINDINGS: LINES/TUBES: Stable position of left approach cardiac device. LUNGS: Stable pulmonary edema. PLEURA: Stable small bilateral pleural effusions. HEART AND MEDIASTINUM: Stable enlargement of the cardiomediastinal silhouette. BONES AND SOFT TISSUES: No acute findings. IMPRESSION: No significant interval change. Signed by: Dr. Gabby Orozco M.D. on 11/25/2017 6:25 AM
[2017-11-25] MEDS: FAMOTIDINE 20 MG TAB PO SCH ×2 (07:30→16:30)
[2017-11-25] MEDS: MINOCYCLINE HCL 50 MG CAP PO SCH ×2 (09:00→21:30)
[2017-11-25] MEDS: ISOSORBIDE MONONITRATE 20 MG TAB PO SCH (09:00)
[2017-11-25] MEDS: POTASSIUM CHLORIDE 10 MEQ TABCR PO SCH (09:00)
[2017-11-25] MEDS: METOPROLOL TARTRATE 25 MG TAB PO SCH ×2 (09:00→16:46)
[2017-11-25] MEDS: LISINOPRIL 2.5 MG TAB PO SCH (09:00)
[2017-11-25] MEDS: PANTOPRAZOLE SOD 40 MG TABEC PO SCH (09:00)
[2017-11-25] MEDS: DEXTROSE 5%/0.45% SOD CHL 1,000 ML IV SCH (14:45)
--- NOTE | 2017-11-25 20:13 | Diagnostic Imaging Report ---
EXAM: ABDOMEN-1VIEW (KUB), supine INDICATION: For NG tube placement COMPARISON: None FINDINGS: LINES/TUBES: Tip of nasogastric tube in the expected location of the body of the stomach. BOWEL PATTERN: No evidence for obstruction. SOFT TISSUES: No abnormal calcifications. LUNG BASES: Not included BONES: No acute findings. IMPRESSION: Tip of nasogastric tube in the expected location of the body of the stomach. Signed by: Dr. Gabby Orozco M.D. on 11/25/2017 8:10 PM
--- NOTE | 2017-11-25 20:28 | Progress Note ---
DATE: November 25, 2017 TIME: 1545 MEDICINE PROGRESS NOTE OVERNIGHT: No acute events. REVIEW OF SYSTEMS: Patient denies any chest pain or shortness of breath. Furthermore, patient denies nausea, vomiting, diarrhea, dizziness or claudication. PHYSICAL EXAMINATION VITAL SIGNS: T 97.8, P 71, respirations 20, BP 141/85, pulse ox 96% on 2 L nasal cannula. GENERAL APPEARANCE: This is a tired-appearing man resting supine in bed. HEAD, EYES, EARS, NOSE, THROAT: Normocephalic. Oral mucosa dry and intact. No sinus tenderness. CV: S1 and S2 auscultated without clicks, murmurs or rubs. LUNGS: Moderate breath sounds in all mahoney with good excursion. ABDOMEN: Soft, slightly tender in left upper quadrant, nondistended. EXTREMITIES: No edema. Trace PT pulses. SKIN: Dry. PSYCHIATRIC: Normal affect. LABS: Reviewed. MEDICATIONS: D5 half NS at 40 mL an hour. Patient is n.p.o. Other meds being held. Medications include 1. Q.6 p.o. Tylenol No. 3. 2. Minocycline 100 mg p.o. q.12. 3. Flomax 0.4 p.o. nightly. 4. Lipitor 40 mg p.o. nightly. 5. K-Dur 10 mEq p.o. daily. 6. Protonix 40 mg p.o. daily. 7. Lopressor 25 mg p.o. b.i.d. 8. Lisinopril 5 mg p.o. daily. 9. Isosorbide mononitrate 20 mg p.o. daily. 10. Pepcid 20 mg b.i.d. a.c. meals. 11. P.r.n. morphine. 12. P.r.n. hydralazine. 13. Sublingual p.r.n. nitroglycerin for chest pain. ASSESSMENT AND PLAN: This is a 77-year-old man with 1. Acute ischemic stroke in the right cerebellar region. Neurology consult appreciated. Patient will need statin prior to discharge. 2. Right vertebral artery occlusion. 3. Acute kidney injury. Follow up morning laboratories. Provide free water flushes in addition to intravenous. 4. Elevated troponin. Patient did have a non-ST segment elevation myocardial infarction. Continue medical treatment with statin, beta-blockers, angiotensin-converting enzyme inhibitors and nitrates. Again, patient will need aspirin prior to discharge. 5. Coronary artery disease with history of stents and coronary artery bypass graft. 6. Severe systolic congestive heart failure with LifeVest in the past. Patient is now status post automatic implantable cardioverter defibrillator times 1 day. 7. Hypertension. 8. Hyperlipidemia. 9. Daily alcohol use. 10. Obesity. Body mass index is 31.4. 11. Ambulatory dysfunction. 12. Prophylaxis. Sequential compression devices and Pepcid. 13. Disposition. After extensive discussion with patient and the family. At this time concerning failure of bedside swallow evaluation, the patient is going to be provided with a nasogastric tube to ensure medications are administered. Patient and family will review how nasogastric tube is tolerated prior to obtaining gastrointestinal consult for possible placement of gastrostomy tube if rehab prognosis was extended. Additionally, the patient will need to follow up with the mortgage counselor specialist for automatic implantable cardioverter defibrillator placement. Will follow up the basic metabolic panel in morning to ensure patient tolerates fluids and feedings without difficulty. Dictated By: Hamzah Hernandez NP Job#: [id number] CQ
[2017-11-25] MEDS: ATORVASTATIN 40 MG TAB PO SCH (21:30)
[2017-11-25] MEDS: TAMSULOSIN HCL 0.4 MG CAP PO SCH (21:30)
[2017-11-26] VITALS (8 sets, daily range): BP systolic 108–130; BP diastolic 55–72
[2017-11-26] MEDS: ACETAMINOPHEN/CODEINE 300MG - 30MG TAB PO SCH ×3 (05:13→17:38)
[2017-11-26 07:14] LABS: ANION GAP 9.3 mmol/L (8-16); BLOOD UREA NITROGEN 9 mg/dL (7-26); BUN/CREATININE RATIO 13 (6-25); CALCIUM 8.1 mg/dL (8.4-10.2); CARBON DIOXIDE 28 mmol/L (22-29); CHLORIDE 102 mmol/L (98-107); EST GLOMERULAR FILTRATION RATE > 60 ML/MIN (60-); GLUCOSE 108 mg/dL (74-118); POTASSIUM 3.3 mmol/L (3.5-5.1); SODIUM 136 mmol/L (136-145)
[2017-11-26] MEDS: PANTOPRAZOLE SOD 40 MG TABEC PO SCH (09:00)
[2017-11-26] MEDS ORDERED: POTASSIUM CHLORIDE 20MEQ/15ML UDC NG ONE (09:30)
[2017-11-26] MEDS: METOPROLOL TARTRATE 25 MG TAB PO SCH ×2 (09:57→20:50)
[2017-11-26] MEDS: LISINOPRIL 2.5 MG TAB PO SCH (09:57)
[2017-11-26] MEDS: ISOSORBIDE MONONITRATE 20 MG TAB PO SCH (09:57)
[2017-11-26] MEDS: POTASSIUM CHLORIDE 10 MEQ TABCR PO SCH (09:57)
[2017-11-26] MEDS: MINOCYCLINE HCL 50 MG CAP PO SCH ×2 (09:57→20:50)
[2017-11-26] MEDS: FAMOTIDINE 20 MG TAB PO SCH ×2 (09:57→16:30)
[2017-11-26] MEDS: DEXTROSE 5%/0.45% SOD CHL 1,000 ML IV SCH (14:45)
--- NOTE | 2017-11-26 18:57 | Progress Note ---
DATE: November 26, 2017 TIME OF SERVICE: 1300 SUBJECTIVE: Overnight no acute events. REVIEW OF SYSTEMS: The patient denies chest pain or shortness of breath. The patient denies nausea, vomiting, diarrhea, dizziness or claudication. Patient with some tenderness to left chest wall AICD site. OBJECTIVE VITAL SIGNS: Temperature 96.8, pulse 66, respirations 20, blood pressure 124/68, pulse oximetry 96%. GENERAL APPEARANCE: A tired-appearing man resting supine in the bed. HEENT: Oral mucosa is moist and intact. No palpable sinus tenderness. Normocephalic. Arcus senilis noted. CARDIOVASCULAR: S1 and S2 distant. LUNGS: Moderate breath sounds in all mahoney on excursion. ABDOMEN: Soft and slightly tender in the left upper quadrant. Not distended. EXTREMITIES: There is no edema. Trace DT and DP pulses. SKIN: Dry. PSYCHIATRIC: Normal affect. LABORATORY DATA: NA 136, K 33, Cl 102, CO2 of 28, gap 9.3, BUN 9, creatinine 0.70 and GFR 60. Calcium 8.1. Hematology counts with WBC at 8.17. Hemoglobin and hematocrit of 14.2 and 42.3 and platelets at 187,000. MEDICATIONS: 1. Pepcid 20 mg b.i.d. a.c. 2. Minocycline 100 mg q.12 h. 3. K-Dur 10 mEq p.o. daily. 4. Lisinopril 5 mg p.o. daily. 5. Isosorbide mononitrate 20 mg p.o. daily. 6. Flomax 0.4 mg nightly. 7. Lipitor 40 mg nightly. 8. Tylenol No. 3 q.6 h. 9. Protonix 40 mg p.o. daily. 10. Lopressor 25 mg q.12 h. by mouth. 11. P.r.n. morphine. 12. P.r.n. hydralazine. 13. P.r.n. nitroglycerin x3 q. 5 minutes for chest pain. ASSESSMENT AND PLAN: This is a 77-year-old man with: 1. Acute ischemic stroke in the right cerebellar region. Neurology consult continues. The patient will need statin prior to discharge. 2. Right vertebral artery occlusion. 3. Acute kidney injury. Morning laboratories stable. Will discontinue IV fluids and continue the free water flushes in addition to tube feeding boluses. 4. Elevated troponins. Patient with positive Non-STEMI. Cardiology following. Continue medical treatment with statin, beta blockers, RAFA inhibitors and nitrates. Patient needs aspirin prior to discharge. 5. Coronary artery disease with history of stent and coronary artery bypass graft. 6. Severe systolic congestive heart failure with LifeVest in the past. Patient is now day 2 status post AICD implantation. 7. Hypertension. 8. Hyperlipidemia. 9. Daily alcohol use. 10. Obesity. BMI 31.4. 11. Ambulatory dysfunction. Physical therapy is following. 12. Prophylaxis: SCDs and Pepcid. DISPOSITION: Again with extensive discussion with the patient and the family at the bedside with RN in attendance. The patient and family pleased with temporary nasogastric tube and bolus feedings at this time. The patient and family furthermore request modified barium swallow as available to assure nutrition needs are met as the patient will likely need assisted facility due to poor ambulation with physical therapy. Additionally, the patient will be followed up with instructional services specialist for the AICD placement. K replaced this day and will follow up in a.m. DICTATED BY: Michelle Hernandez NP Job#: [id number]
[2017-11-26] MEDS: ATORVASTATIN 40 MG TAB PO SCH (20:50)
[2017-11-26] MEDS: TAMSULOSIN HCL 0.4 MG CAP PO SCH (20:50)
[2017-11-27] VITALS (8 sets, daily range): BP systolic 109–140; BP diastolic 61–74
[2017-11-27] MEDS: ACETAMINOPHEN/CODEINE 300MG - 30MG TAB PO SCH ×4 (06:00→17:55)
[2017-11-27 07:06] LABS: ANION GAP 11.7 mmol/L (8-16); BLOOD UREA NITROGEN 8 mg/dL (7-26); BUN/CREATININE RATIO 11 (6-25); CALCIUM 8.2 mg/dL (8.4-10.2); CARBON DIOXIDE 31 mmol/L (22-29); CHLORIDE 102 mmol/L (98-107); CREATININE, SERUM 0.75 mg/dL (0.72-1.25); EST GLOMERULAR FILTRATION RATE > 60 ML/MIN (60-); GLUCOSE 91 mg/dL (74-118); POTASSIUM 3.7 mmol/L (3.5-5.1); SODIUM 141 mmol/L (136-145)
[2017-11-27] MEDS: FAMOTIDINE 20 MG TAB PO SCH ×2 (09:54→16:05)
[2017-11-27] MEDS: METOPROLOL TARTRATE 25 MG TAB PO SCH ×2 (09:55→21:00)
[2017-11-27] MEDS: ISOSORBIDE MONONITRATE 20 MG TAB PO SCH (09:55)
[2017-11-27] MEDS: LISINOPRIL 2.5 MG TAB PO SCH (09:55)
[2017-11-27] MEDS: MINOCYCLINE HCL 50 MG CAP PO SCH ×2 (09:55→21:19)
[2017-11-27] MEDS: PANTOPRAZOLE SOD 40 MG TABEC PO SCH (09:55)
[2017-11-27] MEDS: POTASSIUM CHLORIDE 10 MEQ TABCR PO SCH (09:55)
[2017-11-27] MEDS ORDERED: METOPROLOL TARTRATE INJ 1 MG/ML VIAL IV PRN ×2 (11:00→11:45)
[2017-11-27] MEDS ORDERED: DIGOXIN INJ 0.25 MG/ML 2 ML AMP IV ONE (11:15)
[2017-11-27] MEDS ORDERED: HYDRALAZINE HCL 20 MG/ML VIAL IV PRN (11:45)
[2017-11-27 11:59] LABS: CHOL/HDL RATIO 3.3 (3.9-4.7); MAGNESIUM 1.5 MG/DL (1.3-2.1); PHOSPHORUS 3.8 MG/DL (2.3-4.7)
[2017-11-27 12:18] LABS: THYROID STIMULATING HORMONE 2.929 uIU/mL (0.350-4.940)
[2017-11-27] MEDS: RIVAROXABAN 20 MG TABLET PO SCH (16:05)
[2017-11-27] MEDS: TAMSULOSIN HCL 0.4 MG CAP PO SCH (21:15)
[2017-11-27] MEDS: ATORVASTATIN 40 MG TAB PO SCH (21:17)
[2017-11-28] VITALS (8 sets, daily range): BP systolic 122–149; BP diastolic 60–70
[2017-11-28] MEDS: ACETAMINOPHEN/CODEINE 300MG - 30MG TAB PO SCH ×4 (05:03→17:15)
--- NOTE | 2017-11-28 06:54 | Progress Note ---
DATE: November 27, 2017 TIME: 4 p.m. OVERNIGHT: The patient having difficulty swallowing. NG tube in place. PHYSICAL EXAMINATION VITAL SIGNS: Reviewed. GENERAL: A tired-appearing woman resting in bed. HEENT: Anicteric. He has an NG tube in place. CARDIOVASCULAR: Normal S1 and S2. LUNGS: Moderate breath sounds. ABDOMEN: Soft, nontender and nondistended. EXTREMITIES: No edema. MUSCULOSKELETAL: He has a dressing across the left chest site at AICD site. NEUROLOGICAL: Alert and appropriate. LABS: Reviewed. MEDICATIONS: Reviewed. ASSESSMENT: A 77-year-old man with: 1. Acute ischemic stroke in the right cerebellar region. 2. Dysphagia: Status post nasogastric tube placement. 3. Acute right vertebral artery occlusion. 4. Acute kidney injury. 5. Elevated troponin. 6. Coronary artery disease with history of bypass. 7. Severe systolic congestive heart failure: Status post automatic implanted cardioverter defibrillator placement. 8. Hypertension. 9. Hyperlipidemia. 10. Obesity: Body mass index 31.4. 11. Ambulatory dysfunction. 12. Mkl-SM-uhlmncb elevation myocardial infarction. PLAN 1. He is status post AICD placement. 2. NG tube in place. Follow up modified barium swallow tomorrow. 3. Continue blood pressure and heart rate control. 4. Alcohol cessation counseling. Job#: [id number] HOSEA
--- NOTE | 2017-11-28 06:59 | Progress Note ---
DATE: November 28, 2017 TIME: 6:33 a.m. OVERNIGHT: No events. REVIEW OF SYSTEMS: Denies any chest pain. PHYSICAL EXAMINATION VITAL SIGNS: Reviewed. GENERAL: A tired-appearing man resting in bed. HEENT: Anicteric. CARDIOVASCULAR: Normal S1 and S2. LUNGS: Moderate breath sounds. ABDOMEN: Soft, nontender and nondistended. EXTREMITIES: He has no edema. MUSCULOSKELETAL: He has left-sided chest site AICD site with dressing in place clean and dry. SKIN: Dry. PSYCHIATRIC: Flat affect. LABS: Reviewed. MEDICATIONS: Reviewed. ASSESSMENT: This is a 77-year-old man with: 1. Acute ischemic stroke in the right cerebellar region. 2. Right vertebral artery occlusion. 3. Acute kidney injury. 4. Sxr-BM-fygcyuo elevation myocardial infarction. 5. Severe systolic congestive heart failure: Status post automatic implanted cardioverter defibrillator placement. 6. Hypertension. 7. Hyperlipidemia. 8. Daily alcohol use/alcoholism. 9. Obesity: Body mass index 31.4. 10. Ambulatory dysfunction. PLAN 1. Follow up modified barium swallow this morning. NG tube remains in place. 2. Continue medication regimen of Lipitor, beta anish, nitrate, RAFA inhibitor. 3. Continue amiodarone and beta anish. 4. Continue Xarelto. 5. Follow up modified barium swallow this morning. Job#: [id number] HOSEA
[2017-11-28] MEDS: ISOSORBIDE MONONITRATE 20 MG TAB PO SCH (09:18)
[2017-11-28] MEDS: FAMOTIDINE 20 MG TAB PO SCH ×2 (09:18→17:15)
[2017-11-28] MEDS: AMIODARONE HCL 200 MG TAB PO SCH (09:18)
[2017-11-28] MEDS: PANTOPRAZOLE SOD 40 MG TABEC PO SCH (09:19)
[2017-11-28] MEDS: LISINOPRIL 10 MG TAB PO SCH (09:19)
[2017-11-28] MEDS: POTASSIUM CHLORIDE 10 MEQ TABCR PO SCH (09:19)
[2017-11-28] MEDS: METOPROLOL TARTRATE 25 MG TAB PO SCH ×2 (09:19→21:59)
[2017-11-28] MEDS: MINOCYCLINE HCL 50 MG CAP PO SCH ×2 (09:19→21:56)
--- NOTE | 2017-11-28 14:32 | Diagnostic Imaging Report ---
PROCEDURE:X-RAY MODIFIED BARIUM SWALLOW COMPARISON:None. INDICATIONS:Dysphagia DISCUSSION:Fluoroscopic examination was performed in conjunction with speech pathology, during swallowing of a variety of thin and thick liquid consistencies. Examination shows premature spillage. The vallecula and perform sinus with thin liquids. Laryngeal penetration was noted with thin liquids. Trace aspiration was noted within liquids. Moderate to severe vallecular residue and severe piriform sinus residue was noted after the swallow CONCLUSION:Trace aspiration with thin liquids. Please see the report from speech pathology for complete details. Catracho Bautista M.D. Dictated by: Catracho Bautista M.D. on 11/28/2017 at 14:35 Electronically approved by: Catracho Bautista M.D. on 11/28/2017 at 14:35
[2017-11-28] MEDS: RIVAROXABAN 20 MG TABLET PO SCH (17:15)
--- NOTE | 2017-11-28 20:00 | Consultation ---
DATE OF CONSULTATION: November 28, 2017 GI CONSULTATION REFERRING PHYSICIAN: Dr. Deuce Vazquez REASON FOR CONSULTATION: Oropharyngeal dysphagia in a patient who is suffered from an acute stroke recently. HISTORY OF PRESENTING ILLNESS: A 37-year-old very pleasant, male. He is [place] speaking only. I derived medical history through the software product specialist. GI has been consulted for evaluation of oropharyngeal dysphagia due to recent acute ischemic stroke. He got admitted to the hospital a couple of days ago with acute stroke. He initially had right-sided weakness, which has almost resolved. He did not receive any tPA. He was treated conservatively. He also has cardiomyopathy with low ejection fraction. He received medical therapy so far. On this admission, it was determined that due to ischemic cardiomyopathy and low ejection fraction he needs primary prevention with defibrillator. He ended up with AICD on this admission. He is currently on anticoagulants. He is currently on Xarelto. The patient was eating well without any problems before getting admitted in the hospital. He had a speech and swallowing evaluation done that showed risk of aspiration during swallowing, and oropharyngeal discoordination. Speech therapist recommended n.p.o. and consider alternative routes of nutrition. On MBS he was found to have minimal risk of aspiration with clear liquid. REVIEW OF SYSTEMS: The 12-point systems reviewed and symptomatology is limited as per HPI. PAST MEDICAL HISTORY: Coronary artery disease, ischemic cardiomyopathy, ejection fraction 25% to 30%, type 2 diabetes, hypertension, hyperlipidemia. PAST SURGICAL HISTORY: Recent AICD placement. Coronary artery bypass grafting in 2000. PCI with coronary stent in 1997. FAMILY HISTORY: Retired, . Quit smoking, former smoker. Drinks one shot of tequila every night. Never used any illicit drugs. ALLERGIES: NO KNOWN DRUG ALLERGIES. HOME MEDICATIONS: Acetaminophen with codeine, atorvastatin, isosorbide mononitrate, lisinopril, metoprolol, minocycline, nitroglycerin, pantoprazole, potassium chloride, ranolazine, tamsulosin. INPATIENT MEDICATION LIST: Reviewed. He is on Xarelto. PHYSICAL EXAMINATION VITAL SIGNS: Temperature 96.2, pulse 60, respirations 18, blood pressure 124/68, oxygen saturation 96% on room air. GENERAL: No in any acute distress. HEENT: Moist mucous membranes. Anicteric sclerae. NECK: No lymphadenopathy. NG in place. CVS: S1 and S2 regular. AICD in the left upper anterior chest wall. LUNGS: Bilaterally grossly clear. ABDOMEN: Soft, nondistended, nontender, no palpable mass or hernia. Positive bowel sounds. EXTREMITIES: Warm, no leg edema. LABORATORY DATA: Last lab work available from 11/27/17 sodium 141, potassium 3.7, chloride 102, bicarb 31, BUN 8, creatinine 0.75, liver enzymes normal. WBC 8.17, hemoglobin 14.2, hematocrit 42.3, MCV 98.8, platelet count 187,000. PT 13.9, INR 1.16, PTT 32.3. Urinalysis negative. Blood alcohol level was 11.8 on 11/22/17. Modified barium swallow showed trace aspiration with thin liquids. Abdominal x-ray done on 11/25/17 showed tip of nasogastric tube in expected location of the body of the stomach. IMPRESSION: Oropharyngeal dysphagia secondary to recent stroke. As per speech and swallow evaluation, the patient has normal oral but absent pharyngeal swallow caused by severely reduced upper esophageal/cricopharyngeal opening. PLAN: Since the patient is recovering from stroke very well, the weakness on the right side has improved significantly. I recommend to continue NG tube feeding for a couple of days. Reassess his swallow evaluation by speech therapist on . If the patient continues to fail speech and swallow evaluation repeatedly, then obviously he will need PEG tube placement. Xarelto needs to be stopped at least 3 days prior to procedure. In the interim, nutrition can be maintained through the NG tube feeding. The rest of the care as per primary team. I thank Dr. Vazquez for allowing me to participate in the care of this patient. Job#: [id number]
[2017-11-28] MEDS: TAMSULOSIN HCL 0.4 MG CAP PO SCH (21:57)
[2017-11-28] MEDS: ATORVASTATIN 40 MG TAB PO SCH (21:58)
[2017-11-29] VITALS (7 sets, daily range): BP systolic 116–168; BP diastolic 51–78
[2017-11-29] MEDS: ACETAMINOPHEN/CODEINE 300MG - 30MG TAB PO SCH ×5 (05:17→23:46)
[2017-11-29] MEDS: AMIODARONE HCL 200 MG TAB PO SCH (08:08)
[2017-11-29] MEDS: PANTOPRAZOLE SOD 40 MG TABEC PO SCH (08:08)
[2017-11-29] MEDS: LISINOPRIL 10 MG TAB PO SCH (08:08)
[2017-11-29] MEDS: ISOSORBIDE MONONITRATE 20 MG TAB PO SCH (08:08)
[2017-11-29] MEDS: MINOCYCLINE HCL 50 MG CAP PO SCH ×2 (08:08→21:30)
[2017-11-29] MEDS: METOPROLOL TARTRATE 25 MG TAB PO SCH ×2 (08:08→21:30)
[2017-11-29] MEDS: FAMOTIDINE 20 MG TAB PO SCH ×2 (08:08→17:22)
[2017-11-29] MEDS: POTASSIUM CHLORIDE 10 MEQ TABCR PO SCH (08:09)
[2017-11-29] MEDS: TAMSULOSIN HCL 0.4 MG CAP PO SCH (21:30)
[2017-11-29] MEDS: ATORVASTATIN 40 MG TAB PO SCH (21:30)
--- NOTE | 2017-11-29 23:44 | Progress Note ---
DATE: November 29, 2017 GASTROENTEROLOGY PROGRESS NOTE SUBJECTIVE: Patient reports early satiation and stomach fullness after bolus nasogastric feeding. He also has not had any bowel movement for 2 days. Denies any abdominal pain. REVIEW OF SYSTEMS: GENERAL: No fever or chills. CVS: No chest pain or palpitation. RESPIRATORY: No cough or expectoration. MEDICATIONS: Reviewed as per AUG. PHYSICAL EXAMINATION: VITAL SIGNS: Temperature 97.8. Pulse 64. Respiration 18. Blood pressure 128/70 to 116/51. Oxygen saturation 99% on room air. GENERAL: Not in any acute distress. HEENT: Moist mucous membrane. Anicteric sclerae. CVS: S1/S2 regular. LUNGS: Bilaterally grossly clear. ABDOMEN: Soft, nondistended, nontender. No palpable mass or hernia. Positive bowel sounds. EXTREMITIES: Warm. No leg edema. LABS: None today. IMPRESSION: 1. Oropharyngeal dysphagia secondary to recent acute ischemic stroke. 2. Congestive heart failure from ischemic cardiomyopathy with low ejection fraction status post automatic implantable cardioverter-defibrillator. 3. Patient is on Xarelto, which is on hold. PLAN: 1. As per Neurology, patient is not likely going to recover from oropharyngeal dysphagia soon. Therefore, he will need alternative route of nutrition. We will plan to do EGD and PEG placement on Monday. Xarelto needs to be stopped for at least 5 days before PEG can be planned. 2. He is also complaining of constipation. Therefore, given MiraLAX through the nasogastric tube. His stomach fullness is likely due to excessive amount of NG feeding at one time. Therefore, I recommend to decrease the volume of bolus feeding. Job#: [id number] EV
[2017-11-30] VITALS (8 sets, daily range): BP systolic 120–150; BP diastolic 58–70
[2017-11-30] MEDS: ACETAMINOPHEN/CODEINE 300MG - 30MG TAB PO SCH ×3 (05:59→17:44)
--- NOTE | 2017-11-30 08:02 | Progress Note ---
DATE: November 29, 2017 TIME: 7:15 a.m. OVERNIGHT: No events. REVIEW OF SYSTEMS: Denies any dizziness. PHYSICAL EXAMINATION VITAL SIGNS: Reviewed. GENERAL: A tired-appearing man resting in bed. HEENT: Anicteric. Has an NG tube in place. CARDIOVASCULAR: Normal S1 and S2. LUNGS: Moderate breath sounds. ABDOMEN: Soft, nontender and nondistended. MUSCULOSKELETAL: He has left-sided AICD with dressing in place. SKIN: Dry. PSYCHIATRIC: Flat affect. LABS: Reviewed. MEDICATIONS: Reviewed. ASSESSMENT: A 77-year-old man with: 1. Acute ischemic stroke in the right cerebellar region. 2. Right vertebral artery occlusion. 3. Acute kidney injury. 4. Cho-OU-jdggruueh myocardial infarction. 5. Severe systolic congestive heart failure: Status post automatic implanted cardioverter defibrillator placement. 6. Hypertension. 7. Hyperlipidemia. 8. Daily alcohol use/alcoholism. 9. Obesity: Body mass index 31.4. 10. Ambulatory dysfunction. 11. Oropharyngeal dysphagia. PLAN 1. Will likely need PEG tube. 2. Continue care. 3. Continue AV blocking agents. 4. Xarelto will be held for PEG tube placement. Job#: [id number] HOSEA
--- NOTE | 2017-11-30 08:06 | Progress Note ---
DATE: November 30, 2017 TIME: 7:26 a.m. OVERNIGHT: No events. REVIEW OF SYSTEMS: Denies any dizziness. PHYSICAL EXAMINATION VITAL SIGNS: Reviewed. GENERAL: A tired-appearing man resting in bed. HEENT: Anicteric. He has an NG tube in place. CARDIOVASCULAR: Normal S1 and S2. LUNGS: Moderate breath sounds. ABDOMEN: Soft and nontender. EXTREMITIES: No edema. MUSCULOSKELETAL: He has a left-sided AICD in place with dressing in place. SKIN: Dry. PSYCHIATRIC: Normal affect. LABS: Reviewed. MEDICATIONS: Reviewed. ASSESSMENT: A 77-year-old man with: 1. Acute ischemic stroke of the right cerebellar region. 2. Right vertebral artery occlusion. 3. Acute kidney injury. 4. Xdz-MM-rmckqrbym myocardial infarction. 5. Systolic congestive heart failure: Status post automatic implanted cardioverter defibrillator placement. 6. Hypertension. 7. Hyperlipidemia. 8. Daily alcohol use/alcoholism. 9. Obesity: Body mass index 31.4. 10. Ambulatory dysfunction. 11. Oropharyngeal dysphagia. 12. Constipation. PLAN 1. PEG tube placement pending on Monday. Xarelto is on hold until then. 2. Continue AV blocking agents. 3. Continue nutritional support. 4. Treat constipation. Continue bowel regimen. 5. The patient is comfortable. Will continue current care. Await placement of PEG tube. Job#: [id number] DE
[2017-11-30] MEDS: PANTOPRAZOLE SOD 40 MG TABEC PO SCH (09:00)
[2017-11-30] MEDS: MINOCYCLINE HCL 50 MG CAP PO SCH ×2 (09:50→20:30)
[2017-11-30] MEDS: LISINOPRIL 10 MG TAB PO SCH (09:50)
[2017-11-30] MEDS: AMIODARONE HCL 200 MG TAB PO SCH (09:50)
[2017-11-30] MEDS: POTASSIUM CHLORIDE 10 MEQ TABCR PO SCH (09:50)
[2017-11-30] MEDS: METOPROLOL TARTRATE 25 MG TAB PO SCH ×2 (09:50→20:40)
[2017-11-30] MEDS: POLYETHYLENE GLYCOL 3350 17 GM PACK PEG SCH ×2 (09:50→20:09)
[2017-11-30] MEDS: FAMOTIDINE 20 MG TAB PO SCH ×2 (09:50→17:20)
[2017-11-30] MEDS: ISOSORBIDE MONONITRATE 20 MG TAB PO SCH (09:50)
[2017-11-30] MEDS ORDERED: ONDANSETRON HCL 4 MG ORAL DISINTEGRATING TAB SL PRN (15:30)
[2017-11-30] MEDS ORDERED: ONDANSETRON HCL INJ 2 MG/ML VIAL IV PRN ×2 (15:30→15:45)
[2017-11-30] MEDS: ATORVASTATIN 40 MG TAB PO SCH (20:40)
[2017-11-30] MEDS: TAMSULOSIN HCL 0.4 MG CAP PO SCH (20:40)
[2017-12-01] VITALS (7 sets, daily range): BP systolic 115–134; BP diastolic 56–71
[2017-12-01] MEDS: ACETAMINOPHEN/CODEINE 300MG - 30MG TAB PO SCH ×3 (06:00→11:12)
[2017-12-01 08:11] LABS: BASOPHILS % 0.6 % (0.0-1.0); EOSINOPHILS # (AUTO) 0.2 (0.0-0.4); EOSINOPHILS % 2.9 % (0.0-6.0); HEMATOCRIT 38.1 % (38.2-49.6); HEMOGLOBIN 12.9 g/dL (14.0-18.0); LYMPHOCYTES # (AUTO) 1.6 (1.0-3.2); LYMPHOCYTES % 23.3 % (18.0-39.1); MEAN CORPUSCULAR HEMOGLOBIN 32.8 pg (28-32); MEAN CORPUSCULAR HGB CONC 33.9 g/dL (31-35); MEAN CORPUSCULAR VOLUME 96.9 fL (81-99); MONOCYTES # (AUTO) 0.7 (0.2-0.8); MONOCYTES % 9.9 % (4.4-11.3); NEUTROPHILS # (AUTO) 4.3 (2.1-6.9); NEUTROPHILS % 62.9 % (38.7-80.0); PLATELET COUNT 167 x10e3/uL (140-360); RED BLOOD COUNT 3.93 x10e6/uL (4.3-5.7); RED CELL DISTRIBUTION WIDTH 13.2 % (11.7-14.4)
[2017-12-01] MEDS: POLYETHYLENE GLYCOL 3350 17 GM PACK PEG SCH (08:12)
[2017-12-01] MEDS: ISOSORBIDE MONONITRATE 20 MG TAB PO SCH (08:12)
[2017-12-01] MEDS: MINOCYCLINE HCL 50 MG CAP PO SCH (08:12)
[2017-12-01] MEDS: METOPROLOL TARTRATE 25 MG TAB PO SCH ×2 (08:12→21:24)
[2017-12-01] MEDS: AMIODARONE HCL 200 MG TAB PO SCH (08:12)
[2017-12-01] MEDS: PANTOPRAZOLE 40 MG 10ML VIAL IV SCH (08:12)
[2017-12-01] MEDS: LISINOPRIL 10 MG TAB PO SCH (08:12)
[2017-12-01] MEDS: FAMOTIDINE 20 MG TAB PO SCH ×2 (08:12→16:16)
[2017-12-01] MEDS: POTASSIUM CHLORIDE 10 MEQ TABCR PO SCH (08:14)
[2017-12-01 08:27] LABS: BLOOD UREA NITROGEN 13 mg/dL (7-26); BUN/CREATININE RATIO 17 (6-25); CALCIUM 8.8 mg/dL (8.4-10.2); CARBON DIOXIDE 31 mmol/L (22-29); CHLORIDE 101 mmol/L (98-107); CREATININE, SERUM 0.76 mg/dL (0.72-1.25); EST GLOMERULAR FILTRATION RATE > 60 ML/MIN (60-); GLUCOSE 82 mg/dL (74-118); MAGNESIUM 1.6 MG/DL (1.3-2.1); SODIUM 139 mmol/L (136-145)
--- NOTE | 2017-12-01 08:50 | Progress Note ---
DATE: December 01, 2017 TIME: 8:22 a.m. OVERNIGHT: No events. No chest pain. REVIEW OF SYSTEMS: Denies any dizziness. VITAL SIGNS: Reviewed. PHYSICAL EXAMINATION GENERAL: A tired-appearing man resting in bed. HEENT: Anicteric. NG tube in place. CARDIOVASCULAR: Normal S1 and S2. LUNGS: Moderate breath sounds. ABDOMEN: Soft and nontender. EXTREMITIES: No edema. SKIN: Dry. PSYCHIATRIC: Normal affect. MUSCULOSKELETAL: He has AICD on the left side of the chest. LABS: Reviewed. MEDICATIONS: Reviewed. ASSESSMENT: A 77-year-old man. 1. Acute ischemic stroke of the right cerebellar region. 2. Right vertebral artery occlusion. 3. Acute kidney injury. 4. Kyd-MO-qfmbkxkvc myocardial infarction. 5. Systolic congestive heart failure, status post automatic implanted cardioverter defibrillator placement. 6. Hypertension. 7. Hyperlipidemia. 8. Daily alcohol use/alcoholism. 9. Obesity, body mass index 31.4. 10. Ambulatory dysfunction. 11. Oropharyngeal dysphagia. 12. Constipation. PLAN 1. PEG is planned for Monday. 2. Obtain labs this morning. 3. Continue AV-blocking agents. 4. Continue nutritional support. 5. Treat constipation. 6. Continue current plan of care. Job#: [id number]
--- NOTE | 2017-12-01 14:00 | Progress Note ---
DATE: December 01, 2017 GASTROINTESTINAL PROGRESS REPORT SUBJECTIVE: Patient reports no abdominal pain. He is no longer having any fullness with the bolus NG feeding. He has had a bowel movement today. Regular, soft brown stool. REVIEW OF SYSTEMS: GENERAL: No fever or chills. CVS: No chest pain or palpitation. RESPIRATORY: No cough or expectoration. MEDICATIONS: Reviewed as per AUG. Xarelto is on hold. Today is day. PHYSICAL EXAMINATION: VITAL SIGNS: Temperature 96.1, pulse 60, respiration 19, blood pressure 128/71. Oxygen saturation 96% on 2 liter of nasal cannula. GENERAL: Not in any acute distress. HEENT: Moist mucous membranes. Anicteric sclerae. NG in place. CVS: S1 and S2 regular. LUNGS: Bilaterally grossly clear. ABDOMEN: Soft, nondistended, nontender. No mass or hernia. Positive bowel sounds. EXTREMITIES: Warm. No leg edema. LAB: WBC 6.87, hemoglobin 12.9, hematocrit 38.1, platelet count 167. Electrolytes normal. BUN 13, creatinine 0.76. Last PT/INR was 13.9 and 1.16 on November 24, 2017. IMPRESSION: 1. Oropharyngeal dysphagia secondary to recent acute ischemic stroke. 2. Congestive heart failure from ischemic cardiomyopathy with low ejection fraction, status post automatic implantable cardioverter-defibrillator. 3. On Xarelto, which is on hold. Today is 4th day. PLAN: Continue nasogastric feedings as before. NPO past Monday night. EGD/PEG on Monday. Constipation has improved with the daily use of MiraLAX. Job#: [id number] EV
--- NOTE | 2017-12-01 16:21 | Progress Note ---
DATE: November 30, 2017 GI PROGRESS NOTE SUBJECTIVE: Patient is reporting some improvement in abdominal fullness after getting NG bolus feeding. No nausea or vomiting. He has had 1 bowel movement today. REVIEW OF SYSTEMS: GENERAL: No fever or chills. RESPIRATORY: No cough or expectoration. CVS: No chest pain, palpitation. MEDICATIONS: Reviewed, as per AUG. PHYSICAL EXAMINATION: VITAL SIGNS: Temperature 97.4, pulse 67, respirations 18, blood pressure 120/58, oxygen saturation 96% on room air. GENERAL: Not in any acute distress. HEENT: Moist mucous membranes. Anicteric sclerae. NG is in place. CVS: S1 and S2 regular with AICD in the left anterior chest wall. LUNGS: Bilaterally grossly clear. ABDOMEN: Soft, nondistended, nontender. No palpable mass or hernia. Positive bowel sounds. EXTREMITIES: Warm. No leg edema. LABS: None today. IMAGING: None today. IMPRESSION: 1. Oropharyngeal dysphagia secondary to recent acute ischemic stroke. 2. Congestive heart failure from ischemic cardiomyopathy with low ejection fraction, status post automatic implantable cardioverter-defibrillator. Patient is on Xarelto, this is currently on hold. PLAN: Continue bolus feeding through the NG. Xarelto needs to be held for 5 days. Will plan doing EGD and PEG on Monday. Patient's constipation has improved with MiraLAX. Job#: [id number]
[2017-12-01] MEDS: ATORVASTATIN 40 MG TAB PO SCH (21:23)
[2017-12-01] MEDS: TAMSULOSIN HCL 0.4 MG CAP PO SCH (21:23)
[2017-12-02] VITALS (8 sets, daily range): BP systolic 122–147; BP diastolic 64–79
[2017-12-02] MEDS: FAMOTIDINE 20 MG TAB PO SCH ×2 (08:50→17:01)
[2017-12-02] MEDS: PANTOPRAZOLE 40 MG 10ML VIAL IV SCH (08:54)
[2017-12-02] MEDS: AMIODARONE HCL 200 MG TAB PO SCH (08:54)
[2017-12-02] MEDS: POLYETHYLENE GLYCOL 3350 17 GM PACK PEG SCH (08:54)
[2017-12-02] MEDS: ISOSORBIDE MONONITRATE 20 MG TAB PO SCH (08:55)
[2017-12-02] MEDS: LISINOPRIL 10 MG TAB PO SCH (08:56)
[2017-12-02] MEDS: POTASSIUM CHLORIDE 10 MEQ TABCR PO SCH (08:56)
[2017-12-02] MEDS: METOPROLOL TARTRATE 25 MG TAB PO SCH ×2 (08:56→21:15)
--- NOTE | 2017-12-02 13:46 | Progress Note ---
DATE: December 02, 2017 TIME: 12 noon INTERNAL MEDICINE PROGRESS NOTE OVERNIGHT: No acute events. REVIEW OF SYSTEMS: Patient denies chest pain, shortness of breath, nausea, vomiting, diarrhea, dizziness or pain in the extremities. VITAL SIGNS: T 96.9, P 60, respirations 18, BP 122/64. Pulse oximetry on room air 93%. PHYSICAL EXAMINATION GENERAL APPEARANCE: This is a tired-appearing man resting supine in bed. HEAD, EYES, EARS, NOSE AND THROAT: Oral mucosa is moist and intact. No sinus tenderness. Right NG tube noted in place. NECK: Supple without JVD. CV: S1/S2 with regular rate and rhythm. Dressing to left anterior chest wall noted status post AICD. LUNGS: Bilateral breath sounds with scattered wheezes that clear upon cough. Good excursion per patient. ABDOMEN: Soft. Not distended. Slightly tender to palpation without mass. Positive bowel sounds times 4 quadrants. EXTREMITIES: Warm, dry, without edema, with faint DP/PT pulses. NEUROLOGIC: Patient easily reoriented to person, place and time. PSYCHIATRIC: Flat affect. LABS: Values from 12/01/2017 reviewed. MEDICATIONS 1. Lisinopril 5 mg p.o. daily. 2. Metoprolol 25 mg p.o. q.12 h. 3. K-Dur 10 mEq p.o. daily. 4. Isosorbide mononitrate 20 mg p.o. daily. 5. Protonix 40 mg IV daily. 6. MiraLAX 17 g via PEG once daily. 7. Amiodarone 200 mg by mouth daily. 8. Pepcid 20 mg b.i.d. a.c. p.o. 9. Flomax 0.4 at bedtime. 10. Lipitor 40 mg p.o. nightly. 11. P.R.N. Zofran. 12. P.R.N. metoprolol. 13. P.R.N. hydralazine. 14. P.R.N. nitroglycerin. ASSESSMENT AND PLAN: This is a 77-year-old man with: 1. 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 Late effects include dysphagia. 2. Acute kidney injury, resolved. 3. Kcy-PT-suhuubyva myocardial infarction per cardiology treatment. 4. Systolic congestive heart failure, status post automatic implanted cardioverter defibrillator. 5. Hypertension. Continue medications. 6. Hyperlipidemia. Continue medications. 7. Alcohol use. Outpatient counseling. 8. Obesity, with body mass index 31.4. Follow up outpatient calorie control. 9. Ambulatory dysfunction. Continue PT. 10. Oropharyngeal dysphagia. MBS failed prior. PEG planned for Monday. 11. Constipation, resolving via MiraLAX. 12. Prophylaxis: Lovenox and Pepcid. 13. Disposition: Patient having Xarelto for a specified amount of time prior to PEG placement on 12/04/2017. Will continue plan of care as above. Dictated by Michelle Hernandez NP. Job#: [id number]
[2017-12-02] MEDS: TAMSULOSIN HCL 0.4 MG CAP PO SCH (21:14)
[2017-12-02] MEDS: ATORVASTATIN 40 MG TAB PO SCH (21:14)
[2017-12-03] VITALS (8 sets, daily range): BP systolic 94–148; BP diastolic 56–72
[2017-12-03] MEDS: FAMOTIDINE 20 MG TAB PO SCH ×2 (07:51→15:50)
[2017-12-03] MEDS: POLYETHYLENE GLYCOL 3350 17 GM PACK PEG SCH (07:51)
[2017-12-03] MEDS: PANTOPRAZOLE 40 MG 10ML VIAL IV SCH (08:31)
[2017-12-03] MEDS: AMIODARONE HCL 200 MG TAB PO SCH (08:31)
[2017-12-03] MEDS: METOPROLOL TARTRATE 25 MG TAB PO SCH ×2 (08:32→21:42)
[2017-12-03] MEDS: LISINOPRIL 10 MG TAB PO SCH (08:32)
[2017-12-03] MEDS: ISOSORBIDE MONONITRATE 20 MG TAB PO SCH (08:32)
[2017-12-03] MEDS: POTASSIUM CHLORIDE 10 MEQ TABCR PO SCH (08:33)
--- NOTE | 2017-12-03 14:01 | Progress Note ---
DATE: December 03, 2017 TIME: 10:30 a.m. INTERNAL MEDICINE PROGRESS NOTE OVERNIGHT: No acute events. REVIEW OF SYSTEMS: Patient denies shortness of breath, chest pain, nausea, vomiting, dizziness or pain in the extremities. The patient did complain of diarrhea/loose stool per nursing staff times 2 overnight. VITAL SIGNS: T 96, P 62, BP 133/60, O2 sat 91% on room air. PHYSICAL EXAMINATION GENERAL APPEARANCE: This is a tired-appearing man resting quietly in bed. HEENT: Oral mucosa is moist and intact. No sinus tenderness. Right NGT is noted, secured and clamped. Left naris patent. NECK: Supple without JVD. CV: S1 and S2 with regular rate and rhythm without clicks or murmurs noted. Intact pressure dressing to left anterior chest wall status post AICD. LUNGS: Bilateral breath sounds CTA after a cough. Faint wheeze is noted prior to cough. Cough nonproductive. Good excursion. ABDOMEN: Soft. Nondistended. Nontender. Hyperactive bowel sounds times 4. EXTREMITIES: Moves all. No edema noted. Faint DP/PT pulses. NEUROLOGIC: Patient A and O times 3 this day. Conversation trails during interview. PSYCHIATRIC: Normal affect this day. LABS: Reviewed. MEDICATIONS 1. K-Dur 10 mEq p.o. daily. 2. Lisinopril 5 mg p.o. daily. 3. Metoprolol 25 mg p.o. q.12. 4. Isosorbide mononitrate 20 mg p.o. daily. 5. Protonix 40 mg IV daily. 6. Amiodarone 200 mg p.o. daily. 7. Pepcid 20 mg twice daily before meals. 8. Flomax 0.4 mg at bedtime. 9. Lipitor 40 mg at bedtime. 10. P.R.N. Zofran. 11. P.R.N. metoprolol. 12. P.R.N. MiraLAX, currently on hold per nursing staff. 13. P.R.N. Zofran sublingually. 14. Hydralazine 10 mg p.r.n. IV. 15. P.R.N. nitroglycerin 0.4 sublingual for chest pain. ASSESSMENT AND PLAN: This is a 77-year-old man with: 1. 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 Late effect of dysphagia. 2. Acute kidney injury, resolved. 3. Xih-JA-pxvfwvqqu myocardial infarction. Cardiology is following. 4. Systolic congestive heart failure, status post automatic implanted cardioverter defibrillator. 5. Hypertension. Controlled on current regimen. 6. Continue medications. 7. Alcohol use. Outpatient counseling. 8. Obesity, R/D, body mass index 31.4. Nutritional consult following this week. 9. Ambulatory dysfunction. Continue physical therapy. 10. Oropharyngeal dysphagia. Failed modified barium swallow this past week. PEG planned for tomorrow. 11. Constipation, resolved. Patient is now having loose stool. 12. Prophylaxis: Lovenox and Pepcid. 13. Disposition: Continue plan of care as above. PEG placement planned for Monday, tomorrow. Xarelto has been held for specified amount of time. Will obtain coagulation studies with a.m. labs prior to the procedure. Dictated by Michelle Hernandez NP. Job#: [id number]
[2017-12-03] MEDS: ATORVASTATIN 40 MG TAB PO SCH (21:39)
[2017-12-03] MEDS: TAMSULOSIN HCL 0.4 MG CAP PO SCH (21:40)
[2017-12-04] VITALS (8 sets, daily range): BP systolic 108–136; BP diastolic 55–65
[2017-12-04 06:29] LABS: BASOPHILS # (AUTO) 0.1 (0.0-0.1); BASOPHILS % 0.7 % (0.0-1.0); EOSINOPHILS # (AUTO) 0.2 (0.0-0.4); EOSINOPHILS % 2.6 % (0.0-6.0); HEMATOCRIT 38.7 % (38.2-49.6); HEMOGLOBIN 12.8 g/dL (14.0-18.0); LYMPHOCYTES # (AUTO) 1.7 (1.0-3.2); LYMPHOCYTES % 23.6 % (18.0-39.1); MEAN CORPUSCULAR HEMOGLOBIN 32.3 pg (28-32); MEAN CORPUSCULAR HGB CONC 33.1 g/dL (31-35); MEAN CORPUSCULAR VOLUME 97.7 fL (81-99); MONOCYTES # (AUTO) 0.8 (0.2-0.8); MONOCYTES % 11.5 % (4.4-11.3); NEUTROPHILS # (AUTO) 4.3 (2.1-6.9); NEUTROPHILS % 61.2 % (38.7-80.0); PLATELET COUNT 184 x10e3/uL (140-360); RED BLOOD COUNT 3.96 x10e6/uL (4.3-5.7)
[2017-12-04 06:52] LABS: ALANINE AMINOTRANSFERASE 10 IU/L (0-55); ALKALINE PHOSPHATASE 52 IU/L (40-150); ANION GAP 14.8 mmol/L (8-16); BLOOD UREA NITROGEN 14 mg/dL (7-26); BUN/CREATININE RATIO 17 (6-25); CALCIUM 8.9 mg/dL (8.4-10.2); CARBON DIOXIDE 30 mmol/L (22-29); CHLORIDE 101 mmol/L (98-107); CREATININE, SERUM 0.83 mg/dL (0.72-1.25); EST GLOMERULAR FILTRATION RATE > 60 ML/MIN (60-); GLUCOSE 73 mg/dL (74-118); POTASSIUM 3.8 mmol/L (3.5-5.1); SODIUM 142 mmol/L (136-145)
[2017-12-04 07:16] LABS: INR 1.25; PROTHROMBIN TIME 14.8 seconds (11.9-14.5)
[2017-12-04 07:17] LABS: PARTIAL THROMBOPLASTIN TIME 37.4 seconds (23.8-35.5)
[2017-12-04] MEDS: FAMOTIDINE 20 MG TAB PO SCH ×2 (07:30→18:13)
[2017-12-04] MEDS: LISINOPRIL 10 MG TAB PO SCH (09:00)
[2017-12-04] MEDS: PANTOPRAZOLE 40 MG 10ML VIAL IV SCH (09:00)
[2017-12-04] MEDS: POTASSIUM CHLORIDE 10 MEQ TABCR PO SCH (09:00)
[2017-12-04] MEDS: METOPROLOL TARTRATE 25 MG TAB PO SCH ×2 (09:00→20:52)
[2017-12-04] MEDS: ISOSORBIDE MONONITRATE 20 MG TAB PO SCH (09:00)
[2017-12-04] MEDS: AMIODARONE HCL 200 MG TAB PO SCH (09:00)
[2017-12-04] MEDS: POLYETHYLENE GLYCOL 3350 17 GM PACK PEG SCH (09:00)
--- NOTE | 2017-12-04 09:06 | Progress Note ---
DATE: December 04, 2017 TIME: 8:21 a.m. OVERNIGHT: No events. REVIEW OF SYSTEMS: Denies any dizziness. PHYSICAL EXAMINATION VITAL SIGNS: Reviewed. GENERAL: A tired-appearing man resting in bed. HEENT: Anicteric. NG tube in place. CARDIOVASCULAR: Normal S1 and S2. LUNGS: Moderate breath sounds. ABDOMEN: Soft, nontender and nondistended. EXTREMITIES: No edema. SKIN: Dry. PSYCHIATRIC: Flat affect. MUSCULOSKELETAL: Left-sided chest cardiac device. LABS: Reviewed. MEDICATIONS: Reviewed. ASSESSMENT: A 77-year-old man with: 1. Acute ischemic stroke of the right cerebellar region. 2. Right vertebral artery occlusion. 3. Acute kidney injury. 4. Umb-JA-bcvayhkeq myocardial infarction. 5. Systolic congestive heart failure: Status post automatic implanted cardioverter defibrillator placement. 6. Hypertension. 7. Hyperlipidemia. 8. Daily alcohol use/alcoholism. 9. Obesity: Body mass index 31.4. 10. Ambulatory dysfunction. 11. Oropharyngeal dysphagia. 12. Constipation. PLAN 1. PEG tube pending today. 2. Follow up labs. 3. Continue heart rate control. 4. Blood pressure well controlled. 5. Labs have been reviewed. Job#: [id number] RI
[2017-12-04] MEDS ORDERED: CEFAZOLIN SOD 1 GM VIAL ONE (18:02)
[2017-12-04] MEDS ORDERED: MIDAZOLAM HCL 2 MG/2 ML VIAL ONE (18:39)
[2017-12-04] MEDS ORDERED: KETAMINE HCL INJ 50 MG/ML 10 ML VIAL ONE (18:39)
[2017-12-04] MEDS: ATORVASTATIN 40 MG TAB PO SCH (20:52)
[2017-12-04] MEDS: TAMSULOSIN HCL 0.4 MG CAP PO SCH (20:52)
[2017-12-05] VITALS: BP 123/67
[2017-12-05 04:00] VITALS: BP 132/67
[2017-12-05] MEDS: FAMOTIDINE 20 MG TAB PO SCH ×2 (07:30→16:30)
[2017-12-05 08:00] VITALS: BP 136/63
--- NOTE | 2017-12-05 08:42 | Progress Note ---
DATE: OVERNIGHT: He had PEG tube placed. Pain is currently controlled. REVIEW OF SYSTEMS: Denies any dizziness, chest pain. PHYSICAL EXAMINATION: VITAL SIGNS: Reviewed. GENERAL APPEARANCE: Tired-appearing man resting in bed. HEENT: Anicteric. CARDIOVASCULAR: Normal S1 and S2. LUNGS: Moderate breath sounds. ABDOMEN: Soft. He has binder in place. He has PEG tube in place. MUSCULOSKELETAL: He has left-sided chest device. EXTREMITIES: No edema. SKIN: Dry. PSYCHIATRIC: Flat affect. NEUROLOGICAL: Alert and appropriate. LABS: Reviewed. MEDICATIONS: Reviewed. ASSESSMENT: This is a 77-year-old man. 1. Acute ischemic stroke of the right cerebellar region. 2. Dysphagia, status post percutaneous endoscopic gastrostomy tube placement. 3. Acute kidney injury. 4. Right vertebral artery occlusion. 5. Pev-LD-ojwzsamij myocardial infarction. 6. Systolic congestive heart failure, status post automatic implantable cardioverter-defibrillator placement. 7. Hypertension. 8. Hyperlipidemia. 9. Daily alcohol consumption/alcoholism. 10. Obesity. Body mass index 31.4. 11. Ambulatory dysfunction. 12. Oropharyngeal dysphagia. 13. Constipation. PLAN: 1. PEG tube placed. Now, will start tube feeding sometime later today and see how he tolerates it. 2. Continue blood pressure control. 3. Continue physical therapy. 4. Labs are looking okay. Patient can be transitioned out of the hospital late today or tomorrow. His hemoglobin A1c was 5.3 during this hospitalization. Job#: [id number]
[2017-12-05] MEDS: PANTOPRAZOLE 40 MG 10ML VIAL IV SCH (09:00)
[2017-12-05] MEDS: LISINOPRIL 10 MG TAB PO SCH (09:00)
[2017-12-05] MEDS: ISOSORBIDE MONONITRATE 20 MG TAB PO SCH (09:00)
[2017-12-05] MEDS: ASPIRIN 81 MG ENTERIC COATED PO SCH (09:00)
[2017-12-05] MEDS: AMIODARONE HCL 200 MG TAB PO SCH (09:00)
[2017-12-05] MEDS: POLYETHYLENE GLYCOL 3350 17 GM PACK PEG SCH (09:00)
[2017-12-05] MEDS: POTASSIUM CHLORIDE 10 MEQ TABCR PO SCH (09:00)
[2017-12-05] MEDS: METOPROLOL TARTRATE 25 MG TAB PO SCH ×2 (09:00→21:30)
[2017-12-05 12:06] VITALS: BP 127/74
[2017-12-05 16:00] VITALS: BP 108/57
[2017-12-05] MEDS: RIVAROXABAN 20 MG TABLET PO SCH (18:25)
[2017-12-05 20:00] VITALS: BP 119/64
[2017-12-05] MEDS: ATORVASTATIN 40 MG TAB PO SCH (21:30)
[2017-12-05] MEDS: TAMSULOSIN HCL 0.4 MG CAP PO SCH (21:50)
[2017-12-06] VITALS: BP 115/65
[2017-12-06 04:00] VITALS: BP 143/70
[2017-12-06 07:56] VITALS: BP 131/61
[2017-12-06] MEDS ORDERED: XARELTO10 MG PO (08:28)
[2017-12-06] MEDS ORDERED: AMIODARONE HCL200 MG PO (08:28)
[2017-12-06] MEDS: FAMOTIDINE 20 MG TAB PO SCH ×2 (08:28→16:47)
[2017-12-06] MEDS: POLYETHYLENE GLYCOL 3350 17 GM PACK PEG SCH (08:28)
[2017-12-06] MEDS ORDERED: FLOMAX0.4 MG PO (08:28)
[2017-12-06] MEDS ORDERED: ASPIRIN EC81 MG PO (08:28)
[2017-12-06] MEDS: PANTOPRAZOLE 40 MG 10ML VIAL IV SCH (08:28)
[2017-12-06] MEDS: ASPIRIN 81 MG ENTERIC COATED PO SCH (08:29)
[2017-12-06] MEDS: ISOSORBIDE MONONITRATE 20 MG TAB PO SCH (08:29)
[2017-12-06] MEDS: AMIODARONE HCL 200 MG TAB PO SCH (08:29)
[2017-12-06] MEDS: METOPROLOL TARTRATE 25 MG TAB PO SCH (08:30)
[2017-12-06] MEDS: LISINOPRIL 10 MG TAB PO SCH (08:30)
[2017-12-06] MEDS: POTASSIUM CHLORIDE 10 MEQ TABCR PO SCH (08:31)
[2017-12-06 09:00] VITALS: BP 131/61
[2017-12-06 12:28] VITALS: BP 115/60
[2017-12-06 16:14] VITALS: BP 93/54
[2017-12-06] MEDS: RIVAROXABAN 20 MG TABLET PO SCH (16:47)
--- NOTE | 2017-12-08 10:10 | Discharge Summary ---
PRINCIPAL DIAGNOSES 1. Acute ischemic stroke of the right cerebellar region. 2. Dysphagia, status post percutaneous endoscopic gastrostomy tube placement. 3. Acute kidney injury. 4. Right vertebral artery occlusion. 5. Tyj-AH-imnnlxqsz myocardial infarction. 6. Systolic congestive heart failure, status post automatic implantable cardioverter-defibrillator placement. 7. Hypertension. 8. Hyperlipidemia. 9. Daily alcohol consumption/alcoholism. 10. Obesity. Body mass index 31.4. 11. Ambulatory dysfunction. 12. Oropharyngeal dysphagia. 13. Constipation. SECONDARY DIAGNOSIS: Hypertension. CHIEF COMPLAINT: Headache and confusion. HISTORY OF PRESENT ILLNESS: This is a 77-year-old man with headache and confusion. Please refer to the H and P for further details. HOSPITAL COURSE: The patient was found to have acute ischemic stroke in the right cerebellar region. He had dysphagia, and a PEG tube was placed. He had acute kidney injury, which improved. He had right vertebral artery occlusion. He had a myi-KI-ienbeuold DE, which was treated medically, and systolic congestive heart failure. He underwent AICD placement. Hypertension, hyperlipidemia, and daily alcohol consumption and alcoholism. He was counseled on cessation. He had obesity with BMI 31.4. Counseled on caloric restriction. Ambulatory dysfunction, and he received physical therapy. Constipation was treated with medication regimen. The patient was subsequently transitioned out of the hospital. His hemoglobin A1c was 5.3. DISCHARGE MEDICATIONS: Per electronic medical record. FOLLOWUP 1. With primary care doctor in 1 week. 2. Follow up with neurology in 2 weeks. 3. GI service in 2 weeks. 4. Cardiology in 2 weeks. CONDITION ON DISCHARGE: Stable and improving. DISCHARGE LOCATION: Home. ANGELA BERNAL MD Job#: [id number]
== END 2017-12-06 17:54 | disposition home health service (06) | DRG 226 ==
LOC: ER 08:14 → EDBEDREQ 12:55 → ERHOLD 15:28 → IMCU 19:56 → OBSVTOIN 11-23 06:40 → MED/SURG 11-23 14:16
PROVIDERS: ADMIT Internal Medicine; ATTEND Internal Medicine
PROC: 0JH609Z Insertion of Cardiac Resynchronization Defibrillator Pulse Generator into Chest Subcutaneous Tissue and Fascia, Open Approach (ICD-10-PCS; 2017-11-24)
PROC: 02HK3KZ Insertion of Defibrillator Lead into Right Ventricle, Percutaneous Approach (ICD-10-PCS; 2017-11-24)
PROC: 02HL3KZ Insertion of Defibrillator Lead into Left Ventricle, Percutaneous Approach (ICD-10-PCS; 2017-11-24)
PROC: 02H63KZ Insertion of Defibrillator Lead into Right Atrium, Percutaneous Approach (ICD-10-PCS; 2017-11-24)
PROC: 0DB78ZX Excision of Stomach, Pylorus, Via Natural or Artificial Opening Endoscopic, Diagnostic (ICD-10-PCS; principal; 2017-12-04 08:30)
PROC: 0DH63UZ Insertion of Feeding Device into Stomach, Percutaneous Approach (ICD-10-PCS; 2017-12-04 08:30)
DX: I21.4 Non-ST elevation (NSTEMI) myocardial infarction (principal); I63.541 Cerebral infarction due to unspecified occlusion or stenosis of right cerebellar artery; G93.41 Metabolic encephalopathy; N17.9 Acute kidney failure, unspecified; I50.20 Unspecified systolic (congestive) heart failure; R53.1 Weakness; E11.9 Type 2 diabetes mellitus without complications; I25.10 Atherosclerotic heart disease of native coronary artery without angina pectoris; Z95.1 Presence of aortocoronary bypass graft; E78.5 Hyperlipidemia, unspecified; F10.10 Alcohol abuse, uncomplicated; E66.9 Obesity, unspecified; Z68.31 Body mass index [BMI] 31.0-31.9, adult; K21.9 Gastro-esophageal reflux disease without esophagitis; N40.0 Benign prostatic hyperplasia without lower urinary tract symptoms; I25.2 Old myocardial infarction; Z91.14 Patient's other noncompliance with medication regimen; I11.0 Hypertensive heart disease with heart failure; Z91.19 Patient's noncompliance with other medical treatment and regimen; Z72.0 Tobacco use; R13.12 Dysphagia, oropharyngeal phase; K29.70 Gastritis, unspecified, without bleeding; K29.80 Duodenitis without bleeding; K59.00 Constipation, unspecified; R27.8 Other lack of coordination; E87.6 Hypokalemia
CPT/HCPCS: 33225; 33249; 36415; 43235; 43239; 70450; 70551; 71045; 74018; 74230; 77001; 80048; 80053; 80061; 80320; 81001; 82550; 82553; 82948; 83036; 83735; 84100; 84443; 84484; 84550; 85025; 85610; 85730; 88305; 88312; 92523; 93005; 93306; 93880; 99284; C1898; G0378; J0690; J1160; J1650; J2001; J2250; J2405; J3370; J7030; J7040